=== PATIENT | female | born 1950 | race Caucasian/White ===

== ENCOUNTER → 2016-11-30 | Outpatient (CLI) | payer MEDICARE, BC ==
[2016-06-17 19:48] VITALS: BP 109/53
[~2016-11-30] MED LIST: ASPI-482 PO; CHLO5CAP2 PO; FAMO40TA57 PO; FENT1PAT17 TD; FENT1PAT19 TD; FENT1PAT21 TD; LUBI24CA5 PO; OMEP10CA3 PO; ONDA4TAB10 SL; POTA99TA10 PO; SERT100T8 PO; SPIR50TA2 PO; TRAM50TA PO; ZOLP10TA4 PO
--- NOTE | 2016-11-30 16:03 | KCIC ---
PROCEDURE Right lower extremity venous Doppler ultrasound HISTORY Right lower extremity pain, lumps of the right calf, thrombophlebitis COMPARISON None FINDINGS Multiple grayscale, color, duplex spectral analysis waveform images were acquired of the right lower extremity veins. There is normal compression and color flow from the right common femoral to popliteal veins, normal phasicity. There is normal color flow of the right greater saphenous vein. Right superficial saphenous vein is also apparently patent. No focal varicosity is demonstrated at site of lump and pain indicated as the mid lateral right calf region. Incidental note is made of a right groin lymph node although not considered significantly enlarged, 0.9 x 1.4 x 0.4 cm. IMPRESSION 1. There is no evidence of deep venous thrombosis from the right common femoral to popliteal veins, no thrombosed superficial vein or varicosity demonstrated on this exam. Electronically signed by: Jesus Luong MD (Nov 30, 2016 16:01:57)
== END | disposition home or self-care (01) ==
LOC: KCIC US 15:20
PROVIDERS: ATTEND Family Medicine
DX: R22.41 Localized swelling, mass and lump, right lower limb (principal); Z86.72 Personal history of thrombophlebitis
CPT/HCPCS: 93971

== ENCOUNTER 2017-10-02 01:49 | Emergency (ER) | payer MEDICARE, BC ==
[~2017-10-02] VITALS: Ht 165.1 cm; Wt 78.0 kg
[~2017-10-02 01:49] MED LIST changes: -LUBI24CA5 PO; +LUBI24CA7 PO
[2017-10-02 02:53] LABS: BASO # 0.1 x10^3/uL (0.0-0.2); BASO % 1 % (0-3); EOS % 1 % (0-3); HEMATOCRIT 43.4 % (36.0-47.0); HEMOGLOBIN 14.4 g/dL (12.0-15.5); LYMPH # 3.2 x10^3/uL (1.0-4.8); LYMPH % 18 % (24-48); MEAN CORPUSCULAR HEMOGLOBIN 29 pg (25-35); MEAN CORPUSCULAR HGB CONC 33 g/dL (31-37); MEAN CORPUSCULAR VOLUME 89 fL (79-100); MONO % 5 % (0-9); NEUT % 76 % (31-73); PLATELET COUNT 397 x10^3/uL (140-400); RED BLOOD COUNT 4.88 x10^6/uL (3.50-5.40); RED CELL DISTRIBUTION WIDTH 18.3 % (11.5-14.5); WHITE BLOOD COUNT 18.1 x10^3/uL (4.0-11.0)
[2017-10-02 02:55] LABS: BILIRUBIN,URINE NEGATIVE (NEG); GLUCOSE,URINE NEGATIVE (NEG); NITRITE,URINE NEGATIVE (NEG); PROTEIN,URINE NEGATIVE (NEG-TRACE)
[2017-10-02] MEDS ORDERED: IV NORMAL SALINE 1000ML BAG 1,000 ML IV ONE (03:00)
[2017-10-02] MEDS ORDERED: cloNIDine HCL 0.1 MG TABLET PO ONE (03:00)
[2017-10-02] MEDS ORDERED: ONDANSETRON PF 4 MG/2 ML VIAL. IV ONE (03:00)
[2017-10-02] MEDS ORDERED: diphenhydrAMINE 50 MG/ML VIAL IVP ONE (03:00)
[2017-10-02 03:01] LABS: BACTERIA,URINE FEW /HPF (0-FEW); RBC,URINE 0 /HPF (0-2); SQUAMOUS EPITHELIAL CELL,UR FEW /LPF
[2017-10-02 03:09] LABS: CALCIUM 9.1 mg/dL (8.5-10.1); CREATININE 0.9 mg/dL (0.6-1.0); GFR 62.6; POTASSIUM 3.8 mmol/L (3.5-5.1)
[2017-10-02 03:16] LABS: ALBUMIN 3.8 g/dL (3.4-5.0); TOTAL BILIRUBIN 0.3 mg/dL (0.2-1.0); TOTAL PROTEIN 7.5 g/dL (6.4-8.2)
[2017-10-02 03:18] VITALS: BP 124/73
[2017-10-02 03:21] LABS: % EOS 1 % (0-5); ANISOCYTOSIS SLIGHT; PLT ESTIMATE ADEQUATE (ADEQUATE)
--- NOTE | 2017-10-02 04:14 | PHYS DOC ---
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 Patient reports that she no longer thinks that the fentanyl was working. She reports that she has symptoms of feeling cold and clammy, anxiety, nausea. Patient denies any vomiting diarrhea or abdominal cramps. Patient has any fevers shakes chills. Patient reports no cough or rhinorrhea. Patient does feel diaphoretic. Patient reports her PCP is Dr. Lopez whom she has an appointment with on Sunday however she canceled that appointment secondary to feeling better. Patient denies any history of diabetes hypertension strokelike symptoms liver longer kidney problems. Review of systems: Constitutional: Denies fever or chills Eyes: Denies change in visual acuity, redness, or eye pain HENT: Denies nasal congestion or sore throat Respiratory: Denies cough or shortness of breath Physical exam Constitutional: Well developed, well nourished, no acute distress, non-toxic appearance. HENT: Normocephalic, atraumatic, bilateral external ears normal, oropharynx moist, no oral exudates, nose normal. Eyes: PERRLA, EOMI, conjunctiva normal, no discharge. Neck: Normal range of motion, no tenderness, supple, no stridor. Cardiovascular:Heart rate regular rhythm, Lungs & Thorax: Bilateral breath sounds clear to auscultation Abdomen: Bowel sounds normal, soft, no tenderness, no masses, no pulsatile masses. Skin: Warm, dry, no erythema, no rash. Back: No tenderness, no CVA tenderness. Extremities: No tenderness, no cyanosis, no clubbing, ROM intact, no edema. Neurologic: Alert and oriented X 3, normal motor function, normal sensory function, no focal deficits noted. Psychologic: Affect normal, judgement normal, mood normal. Assessment and plan This is a 67-year-old female who appears to be gone through opiate withdrawal by symptoms. Patient reports that she has been on fentanyl for several years now but feels like it is no longer working and is having symptoms consistent with withdrawal. I have had a long discussion with the patient that she will need to touch base with her primary care physician and her pain specialist to evaluate her and assess her for her withdrawal symptoms and decide will be the most appropriate way to order to stop using opiates. Patient appears to be extremely motivated to stop all opiate medications. Patient is requesting assistance with her symptomatology. I have discussed with the patient that we will give her medication to help alleviate some of these symptoms however long- term management and cessation of opiates would be best accomplished by her primary care physician in conjunction with an outpatient program. While in the ER the patient was given clonidine 0.1 mg by mouth, Benadryl and Zofran IV fluids. Patient's lab workup is been unremarkable except for an elevated white blood cell count of unclear etiology. Patient does not appear to be septic and I feel that this might be secondary to the stress of this withdrawal that is caused emargination. Patient is not exhibiting any signs of infectious source. Patient does not have a cough. Patient's abdomen was soft nontender no rebound or guarding. Patient does not have any rash. Patient's neck is supple. Her TMs were clear. Her oropharynx was normal. Patient will be discharged home in stable condition with instructions to follow-up with Dr. Lopez in 1-2 days for reevaluation. Upon reevaluation at 4:15 AM patient reports that she feels 100% improved and is no longer anxious and tremulous, she is no longer diaphoretic or : Clammy. She feels very comfortable with the plan to be discharged home and follow-up with her primary care physician. Initially entering the patient's room she was sleeping and appeared extremely comfortable. Current Medications Current Medications Current Medications Medications (Trade) Dose Ordered Sig/Rayshawn Start Time Stop Time Status Last Admin Dose Admin Clonidine HCl (Catapres) 0.1 mg 1X ONCE 10/02/17 03:00 10/02/17 03:01 DC 10/02/17 03:07 0.1 MG Diphenhydramine HCl (Benadryl) 50 mg 1X ONCE 10/02/17 03:00 10/02/17 03:01 DC 10/02/17 03:11 50 MG Lorazepam (Ativan) 1 mg 1X ONCE 10/02/17 03:00 10/02/17 03:01 DC 10/02/17 03:06 1 MG Ondansetron HCl (Zofran) 4 mg 1X ONCE 10/02/17 03:00 10/02/17 03:01 DC 10/02/17 03:11 4 MG Sodium Chloride 1,000 ml @ 1,000 mls/hr 1X ONCE 10/02/17 03:00 10/02/17 03:59 DC 10/02/17 03:06 1,000 MLS/HR Allergies Allergies Allergies Coded Allergies Type Severity Reaction Last Updated Verified meperidine Allergy Mild 12/11/13 Yes morphine Allergy Mild Hives, itching 12/11/13 Yes Current Patient Data Vital Signs Vital Signs Date Time Temp Pulse Resp B/P (MAP) Pulse Ox O2 Delivery O2 Flow Rate FiO2 10/02/17 03:18 21 124/73 (90) 97 10/02/17 03:07 81 10/02/17 02:07 97.8 Room Air 97.8 Lab Values Laboratory Tests Test 10/02/17 02:05 10/02/17 02:49 White Blood Count 18.1 x10^3/uL (4.0-11.0) H Red Blood Count 4.88 x10^6/uL (3.50-5.40) Hemoglobin 14.4 g/dL (12.0-15.5) Hematocrit 43.4 % (36.0-47.0) Mean Corpuscular Volume 89 fL (79-100) Mean Corpuscular Hemoglobin 29 pg (25-35) Mean Corpuscular Hemoglobin Concent 33 g/dL (31-37) Red Cell Distribution Width 18.3 % (11.5-14.5) H Platelet Count 397 x10^3/uL (140-400) Neutrophils (%) (Auto) 76 % (31-73) H Lymphocytes (%) (Auto) 18 % (24-48) L Monocytes (%) (Auto) 5 % (0-9) Eosinophils (%) (Auto) 1 % (0-3) Basophils (%) (Auto) 1 % (0-3) Neutrophils # (Auto) 13.7 x10^3uL (1.8-7.7) H Lymphocytes # (Auto) 3.2 x10^3/uL (1.0-4.8) Monocytes # (Auto) 1.0 x10^3/uL (0.0-1.1) Eosinophils # (Auto) 0.1 x10^3/uL (0.0-0.7) Basophils # (Auto) 0.1 x10^3/uL (0.0-0.2) Segmented Neutrophils % 76 % (35-66) H Lymphocytes % 16 % (24-48) L Monocytes % 7 % (0-10) Eosinophils % 1 % (0-5) Platelet Estimate Adequate (ADEQUATE) Anisocytosis Slight Sodium Level 135 mmol/L (136-145) L Potassium Level 3.8 mmol/L (3.5-5.1) Chloride Level 100 mmol/L (98-107) Carbon Dioxide Level 21 mmol/L (21-32) Anion Gap 14 (6-14) Blood Urea Nitrogen 19 mg/dL (7-20) Creatinine 0.9 mg/dL (0.6-1.0) Estimated GFR (Cockcroft-Gault) 62.6 BUN/Creatinine Ratio 21 (6-20) H Glucose Level 144 mg/dL (70-99) H Calcium Level 9.1 mg/dL (8.5-10.1) Total Bilirubin 0.3 mg/dL (0.2-1.0) Aspartate Amino Transferase (AST) 10 U/L (15-37) L Alanine Aminotransferase (ALT) 14 U/L (14-59) Alkaline Phosphatase 125 U/L (46-116) H Troponin I Quantitative < 0.017 ng/mL (0.000-0.055) DP-Utd-P-Type Natriuretic Peptide 102 pg/mL (0-124) Total Protein 7.5 g/dL (6.4-8.2) Albumin 3.8 g/dL (3.4-5.0) Albumin/Globulin Ratio 1.0 (1.0-1.7) Urine Collection Type Unknown Urine Color Yellow Urine Clarity Clear Urine pH 6.0 Urine Specific [place] 1.015 Urine Protein Negative mg/dL (NEG-TRACE) Urine Glucose (UA) Negative mg/dL (NEG) Urine Ketones (Stick) Negative mg/dL (NEG) Urine Blood Negative (NEG) Urine Nitrite Negative (NEG) Urine Bilirubin Negative (NEG) Urine Urobilinogen Dipstick 1.0 mg/dL (0.2 mg/dL) Urine Leukocyte Esterase Small (NEG) Urine RBC 0 /HPF (0-2) Urine WBC 5-10 /HPF (0-4) Urine Squamous Epithelial Cells Few /LPF Urine Bacteria Few /HPF (0-FEW) Urine Mucus Mod /LPF Laboratory Tests 10/02/17 02:05 Laboratory Tests 10/02/17 02:05 EKG EKG [] Radiology/Procedures Radiology/Procedures [] Course & Med Decision Making Course & Med Decision Making Pertinent Labs and Imaging studies reviewed. (See chart for details) [] Dragon Disclaimer Dragon Disclaimer This electronic medical record was generated, in whole or in part, using a voice recognition dictation system. Departure Departure Impression: Primary Impression: Opiate withdrawal Disposition: 01 HOME, SELF-CARE Condition: IMPROVED Referrals: LARISSA LOPEZ MD (PCP) Patient Instructions: Narcotic Withdrawal, Opiate Dependence Additional Instructions: Please follow up with her doctors as discussed to assist you with your opiate withdrawal. AMINA HUGHES MD Oct 02, 2017 04:14
--- NOTE | 2017-10-02 07:13 | RAD ---
Portable chest, 10/02/2017: History: Shortness of breath The heart size and pulmonary vascularity are normal. There is minimal parenchymal scarring. No acute infiltrates are seen. There is no evidence of pleural fluid. IMPRESSION: No acute cardiopulmonary abnormality is detected.
--- NOTE | 2017-10-02 08:07 | EKG ---
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
== END 2017-10-02 04:31 | disposition home or self-care (01) ==
LOC: ER 01:49
DX: F11.23 Opioid dependence with withdrawal (principal); F41.9 Anxiety disorder, unspecified; T40.2X5A Adverse effect of other opioids, initial encounter; F32.9 Major depressive disorder, single episode, unspecified; K21.9 Gastro-esophageal reflux disease without esophagitis; E78.00 Pure hypercholesterolemia, unspecified; G89.29 Other chronic pain; E78.5 Hyperlipidemia, unspecified; Z86.73 Personal history of transient ischemic attack (TIA), and cerebral infarction without residual deficits; Z90.49 Acquired absence of other specified parts of digestive tract; Z90.710 Acquired absence of both cervix and uterus; Z88.8 Allergy status to other drugs, medicaments and biological substances; Z88.5 Allergy status to narcotic agent; Y92.89 Other specified places as the place of occurrence of the external cause
CPT/HCPCS: 36415; 71010; 80053; 81001; 83880; 84484; 85007; 85025; 87086; 93005; 96361; 96374; 96375; 99285; J1200; J2060; J2405; J7030

== ENCOUNTER → 2017-12-25 | Outpatient (CLI) | payer MEDICARE, BC | LOC: KCIC 13:55 | DX: R91.8 Other nonspecific abnormal finding of lung field (principal) | CPT/HCPCS: 71046 ==

== ENCOUNTER → 2018-01-16 | Outpatient (CLI) | payer MEDICARE, BC | END | disposition home or self-care (01) | LOC: KCIC MRI 12:55 | DX: M51.17 Intervertebral disc disorders with radiculopathy, lumbosacral region (principal); D18.09 Hemangioma of other sites | CPT/HCPCS: 72148 ==

== ENCOUNTER → 2018-07-03 | Outpatient (CLI) | payer MEDICARE, BC ==
[~2018-07-03] MED LIST changes: -SPIR50TA2 PO; +SPIR50TA4 PO
--- NOTE | 2018-07-03 16:33 | KCIC ---
MR of the left ankle and foot Indication: Ongoing cellulitis. Elevated ESR and white blood cell count. Diabetic. No known ulcer. Redness at the dorsal foot for one month.. Technique: Standard multiplanar sequences are obtained. Ankle: Peroneal tendons: Intact, no dislocation Lateral ligaments: Anterior talofibular, calcaneofibular and posterior talofibular ligaments are intact. Tibiofibular syndesmosis:Intact. Medial tendons: Posterior tibial and flexor tendons are intact. Medial ligaments: No evidence of acute deltoid ligament tear Anterior tendons: Anterior tibial and extensor tendons are intact. Achilles tendon: Intact Plantar aponeurosis: No acute plantar fasciitis Subtalar joints: Patent Tarsal sinus: Intact Talar Dome: Intact Bones: No acute fracture or aggressive bone destruction. Fluid:No significant effusion. Joints: [id number] degenerative changes. Soft tissues: Mild subcutaneous edema. Foot: Subcutaneous edema and swelling along the dorsum of the foot. No organized fluid collection or drainable abscess. No acute tendon disruption. No significant tendon sheath fluid. Lisfranc ligament complex appears intact as does tarsometatarsal alignment. Marrow edema at the first metacarpophalangeal joint. This may be degenerative. Mild marrow edema at the second metatarsal head. No aggressive bone destruction. There is apparent fusion of the first IP joint. There also appears to be fusion of the second IP joint and third IP joint. No large joint effusion. IMPRESSION: 1. Subcutaneous edema or cellulitis along the dorsum of the foot. 2. Marrow edema at the first metacarpophalangeal joint and second metatarsal head. Findings could be degenerative. If there is an adjacent ulcer, mild osteomyelitis could be considered, but this is not convincing. Electronically signed by: Pancho Wong MD (07/03/2018 4:29 PM) [facility]
== END | disposition home or self-care (01) ==
LOC: KCIC MRI 14:34
PROVIDERS: ATTEND Internal Medicine
DX: R60.0 Localized edema (principal); E78.00 Pure hypercholesterolemia, unspecified; K21.9 Gastro-esophageal reflux disease without esophagitis; Z87.891 Personal history of nicotine dependence
CPT/HCPCS: 73718; 73721

== ENCOUNTER → 2018-07-17 | Outpatient (CLI) | payer MEDICARE, BC ==
[~2018-07-17] MED LIST changes: +CONTRAST GIVEN. MC PRN; +IOHEXOL 300 MG/ML 100ML VIAL. IV ONE
--- NOTE | 2018-07-17 15:13 | KCIC ---
CT abdomen pelvis and bilateral lower extremity runoff dated 07/17/2018. No comparison available. CLINICAL INDICATION: History of cellulitis to left foot. Lower extremity swelling and pain. Evaluate for atherosclerotic disease. Claudication. History of diabetes and tobacco use. TECHNIQUE: Contiguous axial imaging of the abdomen and pelvis bilateral lower extremity performed following the bolus administration of 100 cc Omnipaque 300. Study was performed as dedicated CTA with thin cut coronal and sagittal reconstructions 3-D rotational reconstructions. One or more of the following individualized dose reduction techniques were utilized for this examination: 1. Automated exposure control 2. Adjustment of the mA and/or kV according to patient size 3. Use of iterative reconstruction technique. FINDINGS: Abdominal aorta is normal in caliber. No evidence of aneurysm. There is calcific and soft plaque throughout. Mild calcific plaque at the origin of the celiac artery without significant stenosis. The SMA is patent. Bilateral renal arteries are patent. There is an accessory renal artery on the right. Mild narrowing of the JON at its origin. The bilateral common iliac arteries show mild multifocal calcific plaquing. No significant stenosis. The external iliac arteries are patent. Mild to moderate narrowing of the proximal left internal iliac artery with mild narrowing of the proximal right internal iliac artery. The right common femoral artery and profundus femoris are patent. The right SFA is patent. Popliteal artery and tibioperoneal trunk are patent. The arteries of the right calf are within normal limits. The left common femoral artery and profundus femoris are patent. The left SFA, popliteal artery and tibioperoneal trunk are patent. The left calf vessels are patent with no apparent focal stenosis. Deformity of the left femoral midshaft consistent with old healed fracture. There is a anterior grade intramedullary nail in place. There are also old healed fractures of the distal tibia and fibula on the left. Moderate to severe fatty atrophy of the calf muscles and muscles of left foot. There is also [id number] atrophy of the thigh musculature on the left. Liver, spleen, pancreas and adrenal glands are unremarkable. The gallbladder is surgically absent. The common bile duct is mildly dilated measuring 9 mm diameter. No apparent filling defect. No intrahepatic ductal dilatation. Kidneys are symmetric in size and enhancement. No hydronephrosis. Well-defined low-density focus at the upper pole right kidney, most consistent with cyst. Unopacified GI tract normal in caliber and contour. No focal bowel wall thickening. No inflammatory stranding in the mesentery. No ascites or lymphadenopathy. Small umbilical hernia containing only fat. Images of pelvis show nondistended urinary bladder. Surgical absence of the uterus. No free fluid or pelvic lymphadenopathy. IMPRESSION: 1. No evidence of hemodynamically significant stenosis or aneurysm. 2. Mild to moderate narrowing of the proximal left internal iliac artery. 3. Old healed fractures of the midshaft left femur and distal one third shaft tibia and fibula status post or ORIF. There is moderate to severe fatty atrophy of the distal calf and foot musculature which could be related to disuse atrophy or denervation. Correlate clinically. 4. Mild dilation of the extrahepatic biliary tree without significant intrahepatic ductal dilatation. This is likely related to age and postcholecystectomy state. Recommend laboratory correlation. Electronically signed by: Pancho Veloz MD (07/17/2018 3:10 PM) [facility]
== END | disposition home or self-care (01) ==
LOC: KCIC CT 12:04
PROVIDERS: ATTEND Internal Medicine
DX: I70.8 Atherosclerosis of other arteries (principal); M62.562 Muscle wasting and atrophy, not elsewhere classified, left lower leg; K42.9 Umbilical hernia without obstruction or gangrene; E78.00 Pure hypercholesterolemia, unspecified; K21.9 Gastro-esophageal reflux disease without esophagitis; Z90.49 Acquired absence of other specified parts of digestive tract; Z90.710 Acquired absence of both cervix and uterus; Z87.891 Personal history of nicotine dependence
CPT/HCPCS: 75635; 82565; Q9967

== ENCOUNTER 2018-07-29 10:08 | Inpatient (IN) | payer MEDICARE ==
[~2018-07-29] VITALS: Ht 165.1 cm; Wt 78.9 kg
[~2018-07-29 10:08] MED LIST changes: -CONTRAST GIVEN. MC PRN; -IOHEXOL 300 MG/ML 100ML VIAL. IV ONE
[2018-07-29] MEDS ORDERED: IV NORMAL SALINE 1000ML BAG 1,000 ML IV ONE (10:45)
[2018-07-29] MEDS ORDERED: VANCOMYCIN PER PHARMACY MC PRN (10:45)
[2018-07-29] MEDS ORDERED: VANCOMYCIN 2 GM in IV NORMAL SALINE 500ML BAG 500 ML IV ONE (10:45)
[2018-07-29] MEDS ORDERED: ACETAMINOPHEN 325 MG TABLET. PO ONE (10:45)
--- NOTE | 2018-07-29 10:59 | RAD ---
Left Lower Extremity Venous Doppler Ultrasound Indication: Left lower extremity swelling. Evaluate for deep venous thrombosis. Comparison: Bilateral lower extremity venous Doppler May 24, 2018. Procedure: Color Doppler, spectral Doppler, and grayscale images with and without compression are obtained in the area of the common femoral vein, superficial femoral vein - femoral vein junction, main femoral vein (superficial femoral vein) and popliteal vein. Veins of the proximal calf are also imaged. Findings: There is normal duplex flow, color flow and compressibility of all visualized vein segments. There is no evidence of deep venous thrombosis. Impression: No evidence of left lower extremity deep venous thrombosis. Electronically signed by: Pancho Yuan MD (07/29/2018 10:56 AM) [place] [id number]
--- NOTE | 2018-07-29 11:00 | RAD ---
Portable chest, 07/29/2018: HISTORY: Shortness of breath, cellulitis, diabetes The heart size and pulmonary vascularity are normal. No pulmonary infiltrate is seen. There is no evidence of pleural fluid. IMPRESSION: No acute cardiopulmonary abnormality is detected. Electronically signed by: Javan Peterson MD (07/29/2018 10:57 AM) [facility]
--- NOTE | 2018-07-29 11:07 | PHYS DOC ---
Past Medical History Past Medical History: Constipation, Depression, Diabetes-Type II, GERD, High Cholesterol, TIA Additional Past Medical Histor: Chronic low back pain (tx: [facility]) Past Surgical History: Appendectomy, Cholecystectomy, Hysterectomy, Tonsillectomy, Other Additional Past Surgical Histo: JORGE RIVERA 1979 (multiple surgeries to LLE ) Additional Information: 11/20 ppd Alcohol Use: None Drug Use: None Adult General Chief Complaint Chief Complaint: FOOT INJURY PAIN HPI HPI Patient is a 68 year old female presenting with chief complaint of left foot pain and redness. She's had this on and off for 6 weeks now she is admitted to the hospital at [facility] last month she had an MRI that did show some diffuse soft tissue edema she received antibiotics and got better but over the last couple of days the redness and pain has increased she also feels shaky and chills as though she may have a fever although we have not documented one at home. She does have a remote history of a broken leg 30 years ago no new injuries. She was sent over by her primary doctor for likely admission and infectious disease consultation. Review of Systems Review of Systems Constitutional: Eyes: Denies change in visual acuity, redness, or eye pain [] HENT: Denies nasal congestion or sore throat [] Respiratory: Shortness of breath since she got to the ER she is anxious Cardiovascular: No additional information not addressed in HPI [] GI: Denies abdominal pain, nausea, vomiting, bloody stools or diarrhea [] : Denies dysuria or hematuria [] Neurologic: Denies headache, focal weakness or sensory changes [] Endocrine: Denies polyuria or polydipsia [] All other systems were reviewed and found to be within normal limits, except as documented in this note. Current Medications Current Medications Current Medications Medications (Trade) Dose Ordered Sig/Rayshawn Start Time Stop Time Status Last Admin Dose Admin Acetaminophen (Tylenol) 650 mg 1X ONCE 07/29/18 10:45 07/29/18 10:46 DC 07/29/18 11:05 650 MG Lorazepam (Ativan) 1 mg 1X ONCE 07/29/18 10:45 07/29/18 10:46 DC 07/29/18 11:04 1 MG Sodium Chloride 1,000 ml @ 1,000 mls/hr 1X ONCE 07/29/18 10:45 07/29/18 11:44 DC 07/29/18 11:04 1,000 MLS/HR Vancomycin HCl (Vanco Per Pharmacy) 1 each PRN DAILY PRN 07/29/18 10:45 UNV Vancomycin HCl 2 gm/Sodium Chloride 500 ml @ 250 mls/hr 1X ONCE 07/29/18 10:45 07/29/18 12:44 07/29/18 11:29 250 MLS/HR Allergies Allergies Allergies Coded Allergies Type Severity Reaction Last Updated Verified meperidine Allergy Mild 12/11/13 Yes morphine Allergy Mild Hives, itching 12/11/13 Yes Physical Exam Physical Exam Constitutional: Well developed, well nourished, no acute distress, non-toxic appearance. [] HENT: Normocephalic, atraumatic, bilateral external ears normal, oropharynx moist, no oral exudates, nose normal. [] Eyes: PERRLA, EOMI, conjunctiva normal, no discharge. [] Neck: Normal range of motion, no tenderness, supple, no stridor. [] Cardiovascular:Heart rate regular rhythm, no murmur [] Lungs & Thorax: Bilateral breath sounds clear to auscultation [] Abdomen: Bowel sounds normal, soft, no tenderness, no masses, no pulsatile masses. [] Skin: Warm, dry, no erythema, no rash. [] Back: No tenderness, no CVA tenderness. [] Extremities: Left lower extremity there is swelling there is edema there is erythema at the dorsum of the foot pedal pulses intact there are postsurgical changes of the tibia that do not appear new. Neurologic: Alert and oriented X 3, normal motor function, normal sensory function, no focal deficits noted. [] Psychologic: Affect normal, judgement normal, mood anxious Current Patient Data Vital Signs Vital Signs Date Time Temp Pulse Resp B/P (MAP) Pulse Ox O2 Delivery O2 Flow Rate FiO2 07/29/18 11:15 79 22 117/58 (77) 97 Room Air 07/29/18 10:14 98.4 98.4 Lab Values Laboratory Tests Test 07/29/18 11:05 White Blood Count 9.1 x10^3/uL (4.0-11.0) Red Blood Count 3.81 x10^6/uL (3.50-5.40) Hemoglobin 11.5 g/dL (12.0-15.5) L Hematocrit 33.4 % (36.0-47.0) L Mean Corpuscular Volume 88 fL (79-100) Mean Corpuscular Hemoglobin 30 pg (25-35) Mean Corpuscular Hemoglobin Concent 35 g/dL (31-37) Red Cell Distribution Width 17.6 % (11.5-14.5) H Platelet Count 322 x10^3/uL (140-400) Neutrophils (%) (Auto) 73 % (31-73) Lymphocytes (%) (Auto) 21 % (24-48) L Monocytes (%) (Auto) 6 % (0-9) Eosinophils (%) (Auto) 0 % (0-3) Basophils (%) (Auto) 0 % (0-3) Neutrophils # (Auto) 6.7 x10^3uL (1.8-7.7) Lymphocytes # (Auto) 1.9 x10^3/uL (1.0-4.8) Monocytes # (Auto) 0.5 x10^3/uL (0.0-1.1) Eosinophils # (Auto) 0.0 x10^3/uL (0.0-0.7) Basophils # (Auto) 0.0 x10^3/uL (0.0-0.2) Sodium Level 138 mmol/L (136-145) Potassium Level 3.6 mmol/L (3.5-5.1) Chloride Level 103 mmol/L (98-107) Carbon Dioxide Level 23 mmol/L (21-32) Anion Gap 12 (6-14) Blood Urea Nitrogen 8 mg/dL (7-20) Creatinine 0.6 mg/dL (0.6-1.0) Estimated GFR (Cockcroft-Gault) 99.7 BUN/Creatinine Ratio 13 (6-20) Glucose Level 103 mg/dL (70-99) H Lactic Acid Level 1.5 mmol/L (0.4-2.0) Calcium Level 9.1 mg/dL (8.5-10.1) Total Bilirubin 0.5 mg/dL (0.2-1.0) Aspartate Amino Transferase (AST) 11 U/L (15-37) L Alanine Aminotransferase (ALT) 15 U/L (14-59) Alkaline Phosphatase 89 U/L (46-116) Total Protein 7.5 g/dL (6.4-8.2) Albumin 3.5 g/dL (3.4-5.0) Albumin/Globulin Ratio 0.9 (1.0-1.7) L Laboratory Tests 07/29/18 11:05 Laboratory Tests 07/29/18 11:05 EKG EKG [] Radiology/Procedures Radiology/Procedures [] Impressions: so imaged. Findings: There is normal duplex flow, color flow and compressibility of all visualized vein segments. There is no evidence of deep venous thrombosis. Impression: No evidence of left lower extremity deep venous thrombosis. Electronically signed by: Pancho Hirsch MD (07/29/2018 10:56 AM) [place] [id number] DICTATED and SIGNED BY: PANCHO HIRSCH MD DATE: 07/29/18 105 he heart size and pulmonary vascularity are normal. No pulmonary infiltrate is seen. There is no evidence of pleural fluid. IMPRESSION: No acute cardiopulmonary abnormality is detected. Electronically signed by: Javan Peterson MD (07/29/2018 10:57 AM) [facility] DICTATED and SIGNED BY: JAVAN PETERSON MD DATE: 07/29/18 105 Course & Med Decision Making Course & Med Decision Making Pertinent Labs and Imaging studies reviewed. (See chart for details) [] This is 68-year-old female with history of recurrent cellulitis of the left lower extremity she does have a prior history of a surgical repair of the mccoy in the past perhaps she has venous flow issues. This is recurrent now over the course of a month plan to admit IV antibiotics we'll place routine consultation for infectious disease as per the request of primary care doctor. primary doctor had requested id consultation and admission, per the referring md from [facility] that i spoke with giovanni/buck short for the above. Dragon Disclaimer Dragon Disclaimer This electronic medical record was generated, in whole or in part, using a voice recognition dictation system. Departure Departure Impression: Primary Impression: Cellulitis Disposition: ADMITTED INPATIENT Admitting Physician: Sophie Short Condition: STABLE Referrals: SUSAN LEIVA MD (PCP) TIBURCIO OSEGUERA MD Jul 29, 2018 11:07
[2018-07-29 11:24] LABS: BASO % 0 % (0-3); EOS % 0 % (0-3); HEMATOCRIT 33.4 % (36.0-47.0); HEMOGLOBIN 11.5 g/dL (12.0-15.5); LYMPH # 1.9 x10^3/uL (1.0-4.8); LYMPH % 21 % (24-48); MEAN CORPUSCULAR HEMOGLOBIN 30 pg (25-35); MEAN CORPUSCULAR HGB CONC 35 g/dL (31-37); MEAN CORPUSCULAR VOLUME 88 fL (79-100); MONO # 0.5 x10^3/uL (0.0-1.1); MONO % 6 % (0-9); NEUT # 6.7 x10^3uL (1.8-7.7); NEUT % 73 % (31-73); PLATELET COUNT 322 x10^3/uL (140-400); RED BLOOD COUNT 3.81 x10^6/uL (3.50-5.40); RED CELL DISTRIBUTION WIDTH 17.6 % (11.5-14.5); WHITE BLOOD COUNT 9.1 x10^3/uL (4.0-11.0)
[2018-07-29 11:37] LABS: CALCIUM 9.1 mg/dL (8.5-10.1); CREATININE 0.6 mg/dL (0.6-1.0); GFR 99.7; POTASSIUM 3.6 mmol/L (3.5-5.1)
[2018-07-29 11:50] LABS: ALBUMIN 3.5 g/dL (3.4-5.0); ALBUMIN/GLOBULIN RATIO 0.9 (1.0-1.7); TOTAL BILIRUBIN 0.5 mg/dL (0.2-1.0); TOTAL PROTEIN 7.5 g/dL (6.4-8.2)
[2018-07-29 14:12] LABS: BILIRUBIN,URINE NEGATIVE (NEG); CLARITY,URINE CLEAR; COLOR,URINE YELLOW; NITRITE,URINE NEGATIVE (NEG); PH,URINE 5.5; PROTEIN,URINE NEGATIVE (NEG-TRACE); UROBILINOGEN,URINE 0.2 mg/dL (0.2 mg/dL)
[2018-07-29 14:19] LABS: BACTERIA,URINE 0 /HPF (0-FEW); RBC,URINE 0 /HPF (0-2); SQUAMOUS EPITHELIAL CELL,UR FEW /LPF; WBC,URINE 0 /HPF (0-4)
[2018-07-29 15:00] VITALS: BP 102/47
[2018-07-29] MEDS ORDERED: ONDANSETRON ODT 4 MG TAB.RAPDIS. PO PRN (15:45)
[2018-07-29] MEDS ORDERED: C.DIFF MED SCREEN BY RX. MC ONE (15:45)
[2018-07-29] MEDS ORDERED: fentaNYL 100MCG/HR PATCH 1 PATCH PATCH TD SCH (15:45)
[2018-07-29] MEDS ORDERED: fentaNYL 75MCG/HR PATCH 1 PATCH PATCH.TD72 TD SCH (15:45)
[2018-07-29] MEDS ORDERED: ZOLPIDEM 5 MG TABLET. PO PRN (16:00)
[2018-07-29] MEDS ORDERED: ACETAMINOPHEN 325 MG TABLET. PO PRN (16:15)
[2018-07-29] MEDS: LUBIPROSTONE 8 MCG CAPSULE PO SCH (17:00)
--- NOTE | 2018-07-29 17:07 | PDOC1 ---
History and Physical Date of Admission Date of Admission DATE: 07/29/18 TIME: 17:03 History of Present Illness History of Present Illness Ms. Samaniego is a 68 year old female admit for left leg pain, swelling and redness she was hospitalized at [facility] > 3 weeks ago for 3 days, IV abx, then home with abx, and better for awhile, but now pain and rednes have returned. she has a remote history of significant injury to left lower leg about 30 years ago. But currently been having problems, 6 weeks - Prior MRI that did show some diffuse soft tissue edema, no osteo she feels chills, left leg pain, shaky chills PCP is Dr. Greenberg, sent patient for admit and eval Past Medical History Cardiovascular: HTN CENTRAL NERVOUS SYSTEM: Other Musculoskeletal: low back pain, Other Past Surgical History Past Surgical History: Hysterectomy Family History Family History: No Significant Social History Smoke: <1 pack per day ALCOHOL: none Drugs: None Current Problem List Problem List Problems Medical Problems: (1) Cellulitis Status: Acute Current Medications Current Medications Current Medications Vancomycin HCl (Vanco Per Pharmacy) 1 each PRN DAILY PRN MC SEE COMMENTS Last administered on 07/29/18at 16:50; Start 07/29/18 at 10:45 Sodium Chloride 1,000 ml @ 1,000 mls/hr 1X ONCE IV Last administered on at 11:04; Start 07/29/18 at 10:45; Stop 07/29/18 at 11:44; Status DC Lorazepam (Ativan) 1 mg 1X ONCE IV Last administered on 07/29/18at 11:04; Start 07/29/18 at 10:45; Stop 07/29/18 at 10:46; Status DC Acetaminophen (Tylenol) 650 mg 1X ONCE PO Last administered on 07/29/18at 11:05 ; Start 07/29/18 at 10:45; Stop 07/29/18 at 10:46; Status DC Vancomycin HCl 2 gm/Sodium Chloride 500 ml @ 250 mls/hr 1X ONCE IV Last administered on 07/29/18at 11:29; Start 07/29/18 at 10:45; Stop 07/29/18 at 12:44 ; Status DC Pharmacy Consult (C.diff Med Screen By Rx) 1 each 1X ONCE MC ; Start 9/10/18 at 15:45; Stop 07/29/18 at 15:56; Status DC Fentanyl (Duragesic 75mcg/ Hr Patch) 1 patch Q72H TD ; Start 07/29/18 at 15:45 Ondansetron HCl (Zofran Odt) 4 mg PRN Q8HRS PRN PO NAUSEA; Start 07/29/18 at 15 :45 Fentanyl (Duragesic 100mcg/Hr Patch) 1 patch Q72H TD ; Start 07/29/18 at 15:45 Lubiprostone (Amitiza) 24 mcg BIDWMEALS PO ; Start 07/29/18 at 17:00 Sertraline HCl (Zoloft) 100 mg DAILY PO ; Start 07/30/18 at 09:00 Spironolactone (Aldactone) 50 mg DAILY PO ; Start 07/30/18 at 09:00 Zolpidem Tartrate (Ambien) 5 mg PRN QHS PRN PO INSOMNIA; Start 07/29/18 at 16: 00 Acetaminophen (Tylenol) 650 mg PRN Q6HRS PRN PO MILD PAIN / TEMP; Start at 16:15 Vancomycin HCl 1.25 gm/Sodium Chloride 250 ml @ 167 mls/hr Q24H IV ; Start 10/06 at 11:30 Vancomycin HCl (Vancomycin Trough Level) 1 each 1X ONCE MC ; Start 07/31/18 at 11:00; Stop 07/31/18 at 11:01 Active Scripts Active Zofran Odt (Ondansetron) 4 Mg Tab.rapdis 1 Tab SL Q8HRS PRN Reported FENTANYL 75mcg/hr (Fentanyl) 1 Each Patch.td72 1 Patch TD Q72H FENTANYL 100mcg/hr (Fentanyl) 1 Each Patch.td72 1 Patch TD Q72H Chlordiazepoxide Hcl 5 Mg Capsule 5 Mg PO Pepcid (Famotidine) 40 Mg Tablet 40 Mg PO Spironolactone 50 Mg Tablet 50 Mg PO Potassium 99 Mg Tablet 99 Mg PO Zolpidem Tartrate 10 Mg Tablet 10 Mg PO Amitiza (Lubiprostone) 24 Mcg Capsule 24 Mcg PO Omeprazole 10 Mg Capsule.dr 10 Mg PO Sertraline Hcl 100 Mg Tablet 100 Mg PO Allergies Allergies: Coded Allergies: meperidine (Verified Allergy, Mild, 12/11/13) morphine (Verified Allergy, Mild, Hives, itching, 12/11/13) ROS General: YES: Chills; No: Night Sweats, Fatigue, Malaise, Appetite, Other PSYCHOLOGICAL ROS: YES: Sleep disturbances; No: Anxiety, Behavioral Disorder, Concentration difficultie, Decreased libido , Depression, Disorientation, Hallucinations, Hostility, Irritablity, Memory difficulties, Mood Swings, Obsessive thoughts, Other Eyes: No Blurry vision, No Decreased vision, No Double vision, No Dry eyes, No Excessive tearing, No Eye Pain, No Itchy Eyes, No Loss of vision, No Photophobia , No Scotomata, No Uses contacts, No Uses glasses, No Other HEENT: No: Heacaches, Visual Changes, Hearing change, Nasal congestion, Nasal discharge, Oral lesions, Sinus pain, Sore Throat, Epistaxis, Sneezing, Snoring, Tinnitus, Vertigo, Vocal changes, Other Respiratory: No: Cough, Hemoptysis, Orthopnea, Pleuritic Pain, Shortness of breath, SOB with excertion, Sputum Changes, Stridor, Tachypnea, Wheezing, Other Cardiovascular: No Chest Pain, No Palpitations, No Orthopnea, No Paroxysmal Noc. Dyspnea, No Edema, No Lt Headedness, No Other Gastrointestinal: No Nausea, No Vomiting, No Abdominal Pain, No Diarrhea, No Constipation, No Melena, No Hematochezia, No Other Genitourinary: No Dysuria, No Frequency, No Incontinence, No Hematuria, No Retention, No Discharge, No Urgency, No Pain, No Flank Pain, No Other, No , No , No , No , No , No , No Musculoskeletal: Yes Joint Pain, Yes Joint Stiffness, Yes Pain In: (foot and ankle) Neurological: No Behavorial Changes, No Bowel/Bladder ControlChng, No Confusion , No Dizziness, No Gait Disturbance, No Headaches, No Impaired Coord/balance, No Memory Loss, No Numbness/Tingling, No Seizures, No Speech Problems, No Tremors, No Visual Changes, No Weakness, No Other Skin: Yes Rash, Yes Skin Lesion Changes, Yes Other Physical Exam General: Alert, Cooperative, No acute distress HEENT: PERRLA, EOMI Lungs: Clear to auscultation, Normal air movement Heart: RRR, no gallops, no murmurs Rectal Exam: not examined Extremities: No clubbing, Normal pulses Skin: No breakdown, Other (redness, and swellign to lower ankle and foot, marked scarring from remote prior accident to left lower leg, ) Neuro: Normal speech, Normal tone, Other Psych/Mental Status: Mental status NL, Mood NL Vitals Vitals Vital Signs Date Time Temp Pulse Resp B/P (MAP) Pulse Ox O2 Delivery O2 Flow Rate FiO2 07/29/18 14:25 Room Air 07/29/18 12:51 78 16 107/55 (72) 94 07/29/18 10:14 98.4 98.4 Labs Labs Laboratory Tests Test 07/29/18 11:05 07/29/18 14:00 White Blood Count 9.1 x10^3/uL (4.0-11.0) Red Blood Count 3.81 x10^6/uL (3.50-5.40) Hemoglobin 11.5 g/dL (12.0-15.5) Hematocrit 33.4 % (36.0-47.0) Mean Corpuscular Volume 88 fL (79-100) Mean Corpuscular Hemoglobin 30 pg (25-35) Mean Corpuscular Hemoglobin Concent 35 g/dL (31-37) Red Cell Distribution Width 17.6 % (11.5-14.5) Platelet Count 322 x10^3/uL (140-400) Neutrophils (%) (Auto) 73 % (31-73) Lymphocytes (%) (Auto) 21 % (24-48) Monocytes (%) (Auto) 6 % (0-9) Eosinophils (%) (Auto) 0 % (0-3) Basophils (%) (Auto) 0 % (0-3) Neutrophils # (Auto) 6.7 x10^3uL (1.8-7.7) Lymphocytes # (Auto) 1.9 x10^3/uL (1.0-4.8) Monocytes # (Auto) 0.5 x10^3/uL (0.0-1.1) Eosinophils # (Auto) 0.0 x10^3/uL (0.0-0.7) Basophils # (Auto) 0.0 x10^3/uL (0.0-0.2) Sodium Level 138 mmol/L (136-145) Potassium Level 3.6 mmol/L (3.5-5.1) Chloride Level 103 mmol/L (98-107) Carbon Dioxide Level 23 mmol/L (21-32) Anion Gap 12 (6-14) Blood Urea Nitrogen 8 mg/dL (7-20) Creatinine 0.6 mg/dL (0.6-1.0) Estimated GFR (Cockcroft-Gault) 99.7 BUN/Creatinine Ratio 13 (6-20) Glucose Level 103 mg/dL (70-99) Lactic Acid Level 1.5 mmol/L (0.4-2.0) Calcium Level 9.1 mg/dL (8.5-10.1) Total Bilirubin 0.5 mg/dL (0.2-1.0) Aspartate Amino Transf (AST/SGOT) 11 U/L (15-37) Alanine Aminotransferase (ALT/SGPT) 15 U/L (14-59) Alkaline Phosphatase 89 U/L (46-116) Total Protein 7.5 g/dL (6.4-8.2) Albumin 3.5 g/dL (3.4-5.0) Albumin/Globulin Ratio 0.9 (1.0-1.7) Urine Collection Type Unknown Urine Color Yellow Urine Clarity Clear Urine pH 5.5 Urine Specific [place] 1.015 Urine Protein Negative mg/dL (NEG-TRACE) Urine Glucose (UA) Negative mg/dL (NEG) Urine Ketones (Stick) 40 mg/dL (NEG) Urine Blood Negative (NEG) Urine Nitrite Negative (NEG) Urine Bilirubin Negative (NEG) Urine Urobilinogen Dipstick 0.2 mg/dL (0.2 mg/dL) Urine Leukocyte Esterase Negative (NEG) Urine RBC 0 /HPF (0-2) Urine WBC 0 /HPF (0-4) Urine Squamous Epithelial Cells Few /LPF Urine Bacteria 0 /HPF (0-FEW) Laboratory Tests Test 07/29/18 11:05 07/29/18 14:00 White Blood Count 9.1 x10^3/uL (4.0-11.0) Red Blood Count 3.81 x10^6/uL (3.50-5.40) Hemoglobin 11.5 g/dL (12.0-15.5) Hematocrit 33.4 % (36.0-47.0) Mean Corpuscular Volume 88 fL (79-100) Mean Corpuscular Hemoglobin 30 pg (25-35) Mean Corpuscular Hemoglobin Concent 35 g/dL (31-37) Red Cell Distribution Width 17.6 % (11.5-14.5) Platelet Count 322 x10^3/uL (140-400) Neutrophils (%) (Auto) 73 % (31-73) Lymphocytes (%) (Auto) 21 % (24-48) Monocytes (%) (Auto) 6 % (0-9) Eosinophils (%) (Auto) 0 % (0-3) Basophils (%) (Auto) 0 % (0-3) Neutrophils # (Auto) 6.7 x10^3uL (1.8-7.7) Lymphocytes # (Auto) 1.9 x10^3/uL (1.0-4.8) Monocytes # (Auto) 0.5 x10^3/uL (0.0-1.1) Eosinophils # (Auto) 0.0 x10^3/uL (0.0-0.7) Basophils # (Auto) 0.0 x10^3/uL (0.0-0.2) Sodium Level 138 mmol/L (136-145) Potassium Level 3.6 mmol/L (3.5-5.1) Chloride Level 103 mmol/L (98-107) Carbon Dioxide Level 23 mmol/L (21-32) Anion Gap 12 (6-14) Blood Urea Nitrogen 8 mg/dL (7-20) Creatinine 0.6 mg/dL (0.6-1.0) Estimated GFR (Cockcroft-Gault) 99.7 BUN/Creatinine Ratio 13 (6-20) Glucose Level 103 mg/dL (70-99) Lactic Acid Level 1.5 mmol/L (0.4-2.0) Calcium Level 9.1 mg/dL (8.5-10.1) Total Bilirubin 0.5 mg/dL (0.2-1.0) Aspartate Amino Transf (AST/SGOT) 11 U/L (15-37) Alanine Aminotransferase (ALT/SGPT) 15 U/L (14-59) Alkaline Phosphatase 89 U/L (46-116) Total Protein 7.5 g/dL (6.4-8.2) Albumin 3.5 g/dL (3.4-5.0) Albumin/Globulin Ratio 0.9 (1.0-1.7) Urine Collection Type Unknown Urine Color Yellow Urine Clarity Clear Urine pH 5.5 Urine Specific [place] 1.015 Urine Protein Negative mg/dL (NEG-TRACE) Urine Glucose (UA) Negative mg/dL (NEG) Urine Ketones (Stick) 40 mg/dL (NEG) Urine Blood Negative (NEG) Urine Nitrite Negative (NEG) Urine Bilirubin Negative (NEG) Urine Urobilinogen Dipstick 0.2 mg/dL (0.2 mg/dL) Urine Leukocyte Esterase Negative (NEG) Urine RBC 0 /HPF (0-2) Urine WBC 0 /HPF (0-4) Urine Squamous Epithelial Cells Few /LPF Urine Bacteria 0 /HPF (0-FEW) VTE Prophylaxis Ordered VTE Prophylaxis Devices: No VTE Pharmacological Prophylaxi: Yes Assessment/Plan Assessment/Plan cellulitis, recurrent, LLE prior scarring left leg from remote accident PVD workup as outpatient has been negative IV abx, ID consult chronic pain, and prior narcotic dependence, 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
[2018-07-29] MEDS ORDERED: NICOTINE POLACRILEX 2MG GUM PACKAGE of 12. BC PRN (17:15)
[2018-07-29] MEDS ORDERED: NICOTINE 14MG PATCH. TD PRN (17:15)
[2018-07-29] MEDS ORDERED: BUPR1TAB2 PO (17:29)
[2018-07-29] MEDS ORDERED: POTA20TA82 PO (18:09)
[2018-07-29] MEDS ORDERED: SERT50TA PO (18:09)
[2018-07-29] MEDS ORDERED: TRAZ-85 PO (18:09)
[2018-07-29] MEDS ORDERED: OMEP20TA8 PO (18:09)
[2018-07-29] MEDS ORDERED: ASPI325T8 PO (18:11)
[2018-07-29] MEDS ORDERED: METF500T9 PO (18:14)
[2018-07-29] MEDS ORDERED: PRAV40TA2 PO (18:14)
[2018-07-29 19:00] VITALS: BP 100/42
[2018-07-29] MEDS: LACTOBACILLUS RHAMNOSUS GG 1 CAPSULE. PO SCH (20:42)
[2018-07-29] MEDS: BUPRENORPHINE SL SCH (20:57)
[2018-07-29] MEDS: NALOXONE SL SCH (20:57)
[2018-07-29 23:00] VITALS: BP 124/55
[2018-07-30] MEDS ORDERED: LORazepam 0.5 MG TABLET PO PRN (00:30)
[2018-07-30 03:00] VITALS: BP 117/50
[2018-07-30 07:00] VITALS: BP 116/64
[2018-07-30] MEDS: LUBIPROSTONE 8 MCG CAPSULE PO SCH (08:00)
[2018-07-30] MEDS ORDERED: SPIRONOLACTONE 25 MG TABLET PO SCH (09:00)
[2018-07-30] MEDS: SERTRALINE 50 MG TABLET. PO SCH ×2 (09:00→09:09)
[2018-07-30] MEDS: LACTOBACILLUS RHAMNOSUS GG 1 CAPSULE. PO SCH (09:08)
[2018-07-30 09:33] LABS: BASO % 1 % (0-3); EOS # 0.1 x10^3/uL (0.0-0.7); EOS % 2 % (0-3); HEMATOCRIT 34.4 % (36.0-47.0); HEMOGLOBIN 11.2 g/dL (12.0-15.5); LYMPH % 28 % (24-48); MEAN CORPUSCULAR HEMOGLOBIN 29 pg (25-35); MEAN CORPUSCULAR HGB CONC 33 g/dL (31-37); MEAN CORPUSCULAR VOLUME 90 fL (79-100); MONO # 0.7 x10^3/uL (0.0-1.1); MONO % 9 % (0-9); NEUT # 4.3 x10^3uL (1.8-7.7); NEUT % 60 % (31-73); PLATELET COUNT 322 x10^3/uL (140-400); RED BLOOD COUNT 3.83 x10^6/uL (3.50-5.40); WHITE BLOOD COUNT 7.1 x10^3/uL (4.0-11.0)
[2018-07-30 10:21] LABS: ALBUMIN 3.3 g/dL (3.4-5.0); ALBUMIN/GLOBULIN RATIO 0.9 (1.0-1.7); C-REACTIVE PROTEIN 9.7 mg/L (0-3.3); CALCIUM 8.6 mg/dL (8.5-10.1); CREATININE 0.6 mg/dL (0.6-1.0); GFR 99.7; POTASSIUM 4.5 mmol/L (3.5-5.1); TOTAL BILIRUBIN 0.3 mg/dL (0.2-1.0)
[2018-07-30] MEDS: BUPRENORPHINE SL SCH (10:24)
[2018-07-30] MEDS: NALOXONE SL SCH (10:24)
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
[2018-07-30 11:00] VITALS: BP 112/57
[2018-07-30] MEDS ORDERED: VANCOMYCIN 1.25 GM in IV NORMAL SALINE 250ML 250 ML IV SCH (11:30)
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
--- NOTE | 2018-07-30 14:49 | PDOC3 ---
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 [] HENT: Normocephalic, atraumatic, bilateral external ears normal, oropharynx moist, no oral exudates, nose normal. [] Eyes: PERRLA, EOMI, conjunctiva normal, no discharge. [] Neck: Normal range of motion, no tenderness, supple, no stridor. [] Cardiovascular:Heart rate regular rhythm, no murmur [] Lungs & Thorax: Bilateral breath sounds clear to auscultation [] Abdomen: Bowel sounds normal, soft, no tenderness, no masses, no pulsatile masses. [] Skin: Warm, dry, no erythema, no rash. [] Back: No tenderness, no CVA tenderness. [] Extremities: Left lower extremity there is MINIMAL swelling there is edema there is erythema at the dorsum of the foot pedal pulses intact Neurologic: Alert and oriented X 3, normal motor function, normal sensory function, no focal deficits noted. [] Psychologic: Affect normal, judgement normal, mood anxious General: Alert, Cooperative, No acute distress Heart: Regular rate, Normal S1, Normal S2 Lungs: Clear Abdomen: No tenderness Extremities: No clubbing, No cyanosis, Normal pulses Skin: No breakdown, Oth marked scarring from remote prior accident to left lower leg, ) Labs FINAL DIAGNOSIS Problems Medical Problems: (1) Cellulitis Status: Acute Brief Hospital Course Ms. Samaniego is a 68 old [sex] who presented with [ ] CONDITION AT DISCHARGE: Stable Discharge Medications Current Medications Vancomycin HCl (Vanco Per Pharmacy) 1 each PRN DAILY PRN MC SEE COMMENTS Last administered on 07/29/18at 16:50; Start 07/29/18 at 10:45; Stop 07/30/18 at 13:22 ; Status DC Sodium Chloride 1,000 ml @ 1,000 mls/hr 1X ONCE IV Last administered on at 11:04; Start 07/29/18 at 10:45; Stop 07/29/18 at 11:44; Status DC Lorazepam (Ativan) 1 mg 1X ONCE IV Last administered on 07/29/18at 11:04; Start 07/29/18 at 10:45; Stop 07/29/18 at 10:46; Status DC Acetaminophen (Tylenol) 650 mg 1X ONCE PO Last administered on 07/29/18at 11:05 ; Start 07/29/18 at 10:45; Stop 07/29/18 at 10:46; Status DC Vancomycin HCl 2 gm/Sodium Chloride 500 ml @ 250 mls/hr 1X ONCE IV Last administered on 07/29/18at 11:29; Start 07/29/18 at 10:45; Stop 07/29/18 at 12:44 ; Status DC Pharmacy Consult (C.diff Med Screen By Rx) 1 each 1X ONCE MC ; Start 07/29/18 at 15:45; Stop 07/29/18 at 15:46; Status Cancel Fentanyl (Duragesic 75mcg/ Hr Patch) 1 patch Q72H TD ; Start 07/29/18 at 15:45; Status Cancel Ondansetron HCl (Zofran Odt) 4 mg PRN Q8HRS PRN PO NAUSEA; Start 07/29/18 at 15 :45 Fentanyl (Duragesic 100mcg/Hr Patch) 1 patch Q72H TD ; Start 07/29/18 at 15:45; Status Cancel Lubiprostone (Amitiza) 24 mcg BIDWMEALS PO ; Start 07/29/18 at 17:00 Sertraline HCl (Zoloft) 100 mg DAILY PO ; Start 07/30/18 at 09:00; Stop at 09:19; Status DC Spironolactone (Aldactone) 50 mg DAILY PO Last administered on 07/30/18at 09:08 ; Start 07/30/18 at 09:00 Zolpidem Tartrate (Ambien) 5 mg PRN QHS PRN PO INSOMNIA Last administered on 09/05at 20:42; Start 07/29/18 at 16:00 Acetaminophen (Tylenol) 650 mg PRN Q6HRS PRN PO MILD PAIN / TEMP; Start at 16:15 Vancomycin HCl 1.25 gm/Sodium Chloride 250 ml @ 167 mls/hr Q24H IV Last administered on 07/30/18at 10:59; Start 07/30/18 at 11:30; Stop 07/30/18 at 12:29 ; Status DC Vancomycin HCl (Vancomycin Trough Level) 1 each 1X ONCE MC ; Start 07/31/18 at 11:00; Stop 07/31/18 at 11:00; Status DC Lactobacillus Rhamnosus (Culturelle) 1 cap BID PO Last administered on at 09:08; Start 07/29/18 at 21:00 Nicotine (Nicoderm Cq 14mg) 1 patch PRN DAILY PRN TD SMOKING CESSATION Last administered on 07/30/18at 09:10; Start 07/29/18 at 17:15 Nicotine Polacrilex (Nicorette Gum) 1 each PRN Q1HR PRN BC SMOKING CESSATION; Start 07/29/18 at 17:15 Non-Formulary Medication 1 ea BID SL Last administered on 07/30/18at 10:24; Start 07/29/18 at 21:00 Lorazepam (Ativan) 1 mg PRN Q4HRS PRN PO ANXIETY / AGITATION Last administered on 07/30/18at 10:58; Start 07/30/18 at 00:30 Lorazepam (Ativan) 1 mg PRN Q4HRS PRN IV ANXIETY / AGITATION Last administered on 07/30/18at 01:05; Start 07/30/18 at 00:30 Sertraline HCl (Zoloft) 100 mg HS PO ; Start 07/30/18 at 21:00 Active Scripts Active Zofran Odt (Ondansetron) 4 Mg Tab.rapdis 1 Tab SL Q8HRS PRN Reported Pravastatin Sodium 40 Mg Tablet 1 Tab PO QHS Metformin Hcl Er (Metformin Hcl) 500 Mg Tab.er.24h 500 Mg PO HS Aspirin 325 Mg Tablet 1 Tab PO DAILY Zoloft (Sertraline Hcl) 50 Mg Tablet 1 Tab PO DAILY Omeprazole 20 Mg Tablet.dr 1 Tab PO PRN DAILY PRN Potassium Chloride 20 Meq Tablet.er 20 Meq PO DAILY Trazodone Hcl 50 Mg Tablet 2 Tab PO PRN QHS PRN Trazodone Hcl 50 Mg Tablet 1 Tab PO PRN QHS PRN Buprenorphin-[place]al[place]on 8-2 Mg Tb (Buprenorphine Hcl/Naloxone Hcl) 1 Each Tab.subl 4 Mg PO BID PRN Spironolactone 50 Mg Tablet 50 Mg PO DAILY Amitiza (Lubiprostone) 24 Mcg Capsule 24 Mcg PO PRN BID PRN Vital Signs Vital Signs Date Time Temp Pulse Resp B/P (MAP) Pulse Ox O2 Delivery O2 Flow Rate FiO2 07/30/18 11:00 97.2 75 18 112/57 (75) 95 Room Air 97.2 Labs Laboratory Tests Test 07/29/18 11:05 07/29/18 14:00 07/30/18 09:05 White Blood Count 9.1 x10^3/uL (4.0-11.0) 7.1 x10^3/uL (4.0-11.0) Red Blood Count 3.81 x10^6/uL (3.50-5.40) 3.83 x10^6/uL (3.50-5.40) Hemoglobin 11.5 g/dL (12.0-15.5) 11.2 g/dL (12.0-15.5) Hematocrit 33.4 % (36.0-47.0) 34.4 % (36.0-47.0) Mean Corpuscular Volume 88 fL (79-100) 90 fL (79-100) Mean Corpuscular Hemoglobin 30 pg (25-35) 29 pg (25-35) Mean Corpuscular Hemoglobin Concent 35 g/dL (31-37) 33 g/dL (31-37) Red Cell Distribution Width 17.6 % (11.5-14.5) 18.0 % (11.5-14.5) Platelet Count 322 x10^3/uL (140-400) 322 x10^3/uL (140-400) Neutrophils (%) (Auto) 73 % (31-73) 60 % (31-73) Lymphocytes (%) (Auto) 21 % (24-48) 28 % (24-48) Monocytes (%) (Auto) 6 % (0-9) 9 % (0-9) Eosinophils (%) (Auto) 0 % (0-3) 2 % (0-3) Basophils (%) (Auto) 0 % (0-3) 1 % (0-3) Neutrophils # (Auto) 6.7 x10^3uL (1.8-7.7) 4.3 x10^3uL (1.8-7.7) Lymphocytes # (Auto) 1.9 x10^3/uL (1.0-4.8) 2.0 x10^3/uL (1.0-4.8) Monocytes # (Auto) 0.5 x10^3/uL (0.0-1.1) 0.7 x10^3/uL (0.0-1.1) Eosinophils # (Auto) 0.0 x10^3/uL (0.0-0.7) 0.1 x10^3/uL (0.0-0.7) Basophils # (Auto) 0.0 x10^3/uL (0.0-0.2) 0.0 x10^3/uL (0.0-0.2) Sodium Level 138 mmol/L (136-145) 139 mmol/L (136-145) Potassium Level 3.6 mmol/L (3.5-5.1) 4.5 mmol/L (3.5-5.1) Chloride Level 103 mmol/L (98-107) 106 mmol/L (98-107) Carbon Dioxide Level 23 mmol/L (21-32) 27 mmol/L (21-32) Anion Gap 12 (6-14) 6 (6-14) Blood Urea Nitrogen 8 mg/dL (7-20) 5 mg/dL (7-20) Creatinine 0.6 mg/dL (0.6-1.0) 0.6 mg/dL (0.6-1.0) Estimated GFR (Cockcroft-Gault) 99.7 99.7 BUN/Creatinine Ratio 13 (6-20) 8 (6-20) Glucose Level 103 mg/dL (70-99) 115 mg/dL (70-99) Lactic Acid Level 1.5 mmol/L (0.4-2.0) Calcium Level 9.1 mg/dL (8.5-10.1) 8.6 mg/dL (8.5-10.1) Total Bilirubin 0.5 mg/dL (0.2-1.0) 0.3 mg/dL (0.2-1.0) Aspartate Amino Transf (AST/SGOT) 11 U/L (15-37) 16 U/L (15-37) Alanine Aminotransferase (ALT/SGPT) 15 U/L (14-59) 15 U/L (14-59) Alkaline Phosphatase 89 U/L (46-116) 88 U/L (46-116) Total Protein 7.5 g/dL (6.4-8.2) 7.0 g/dL (6.4-8.2) Albumin 3.5 g/dL (3.4-5.0) 3.3 g/dL (3.4-5.0) Albumin/Globulin Ratio 0.9 (1.0-1.7) 0.9 (1.0-1.7) Urine Collection Type Unknown Urine Color Yellow Urine Clarity Clear Urine pH 5.5 Urine Specific [place] 1.015 Urine Protein Negative mg/dL (NEG-TRACE) Urine Glucose (UA) Negative mg/dL (NEG) Urine Ketones (Stick) 40 mg/dL (NEG) Urine Blood Negative (NEG) Urine Nitrite Negative (NEG) Urine Bilirubin Negative (NEG) Urine Urobilinogen Dipstick 0.2 mg/dL (0.2 mg/dL) Urine Leukocyte Esterase Negative (NEG) Urine RBC 0 /HPF (0-2) Urine WBC 0 /HPF (0-4) Urine Squamous Epithelial Cells Few /LPF Urine Bacteria 0 /HPF (0-FEW) Erythrocyte Sedimentation Rate 30 (0-25) C-Reactive Protein, Quantitative 9.7 mg/L (0-3.3) Laboratory Tests Test 07/30/18 09:05 White Blood Count 7.1 x10^3/uL (4.0-11.0) Red Blood Count 3.83 x10^6/uL (3.50-5.40) Hemoglobin 11.2 g/dL (12.0-15.5) Hematocrit 34.4 % (36.0-47.0) Mean Corpuscular Volume 90 fL (79-100) Mean Corpuscular Hemoglobin 29 pg (25-35) Mean Corpuscular Hemoglobin Concent 33 g/dL (31-37) Red Cell Distribution Width 18.0 % (11.5-14.5) Platelet Count 322 x10^3/uL (140-400) Neutrophils (%) (Auto) 60 % (31-73) Lymphocytes (%) (Auto) 28 % (24-48) Monocytes (%) (Auto) 9 % (0-9) Eosinophils (%) (Auto) 2 % (0-3) Basophils (%) (Auto) 1 % (0-3) Neutrophils # (Auto) 4.3 x10^3uL (1.8-7.7) Lymphocytes # (Auto) 2.0 x10^3/uL (1.0-4.8) Monocytes # (Auto) 0.7 x10^3/uL (0.0-1.1) Eosinophils # (Auto) 0.1 x10^3/uL (0.0-0.7) Basophils # (Auto) 0.0 x10^3/uL (0.0-0.2) Erythrocyte Sedimentation Rate 30 (0-25) Sodium Level 139 mmol/L (136-145) Potassium Level 4.5 mmol/L (3.5-5.1) Chloride Level 106 mmol/L (98-107) Carbon Dioxide Level 27 mmol/L (21-32) Anion Gap 6 (6-14) Blood Urea Nitrogen 5 mg/dL (7-20) Creatinine 0.6 mg/dL (0.6-1.0) Estimated GFR (Cockcroft-Gault) 99.7 BUN/Creatinine Ratio 8 (6-20) Glucose Level 115 mg/dL (70-99) Calcium Level 8.6 mg/dL (8.5-10.1) Total Bilirubin 0.3 mg/dL (0.2-1.0) Aspartate Amino Transf (AST/SGOT) 16 U/L (15-37) Alanine Aminotransferase (ALT/SGPT) 15 U/L (14-59) Alkaline Phosphatase 88 U/L (46-116) C-Reactive Protein, Quantitative 9.7 mg/L (0-3.3) Total Protein 7.0 g/dL (6.4-8.2) Albumin 3.3 g/dL (3.4-5.0) Albumin/Globulin Ratio 0.9 (1.0-1.7) Allergies Allergies Coded Allergies Type Severity Reaction Last Updated Verified meperidine Allergy Mild 12/11/13 Yes morphine Allergy Mild Hives, itching 12/11/13 Yes Disposition/Orders: D/C to Home TAE GARZA MD Jul 30, 2018 14:49
--- NOTE | 2018-07-30 14:53 | DISCH ---
DISCHARGE INSTRUCTIONS Condition on Discharge Condition on Discharge: Stable Activity After Discharge Activity Instructions for Disc: Activity as tolerated Lifting Instructions after Dis: No heavy lifting, No pulling or pushing Driving Instructions after Dis: Do not drive today Weight Bearing Status after Di: As tolerated Diet after Discharge Diet after Discharge: Cardiac Checks after Discharge Checks after discharge: Check blood press - daily Contacting the [facility] after DC Call your doctor for: If your condition worsens TAE GARZA MD Jul 30, 2018 14:53
[2018-07-30] MEDS ORDERED: SERTRALINE 50 MG TABLET. PO SCH (21:00)
[2018-08-01] MEDS ORDERED: GABA-585 PO (09:27)
== END 2018-07-30 15:50 | disposition home or self-care (01) | DRG 603 ==
LOC: ER 10:08 → 5 NORTH 11:30
PROVIDERS: ADMIT Internal Medicine; ATTEND Internal Medicine
DX: L03.116 Cellulitis of left lower limb (principal); I87.2 Venous insufficiency (chronic) (peripheral); F32.9 Major depressive disorder, single episode, unspecified; K21.9 Gastro-esophageal reflux disease without esophagitis; E78.00 Pure hypercholesterolemia, unspecified; E11.9 Type 2 diabetes mellitus without complications; G89.29 Other chronic pain; K59.00 Constipation, unspecified; M54.5 Low back pain; I10 Essential (primary) hypertension; F17.210 Nicotine dependence, cigarettes, uncomplicated; E78.5 Hyperlipidemia, unspecified; Z86.73 Personal history of transient ischemic attack (TIA), and cerebral infarction without residual deficits; Z90.49 Acquired absence of other specified parts of digestive tract; Z90.710 Acquired absence of both cervix and uterus; Z88.5 Allergy status to narcotic agent; Z88.8 Allergy status to other drugs, medicaments and biological substances
CPT/HCPCS: 36415; 71045; 80053; 81001; 83605; 85025; 85651; 86140; 87040; 93971; 96365; 96366; 96375; 99406; J2060; J3370; J7030; J7040; J7050; 99285-25

== ENCOUNTER → 2019-08-13 | Outpatient (CLI) | payer MEDICARE ==
[2018-08-02 11:11] VITALS: BP 117/48
[~2019-08-13] MED LIST changes: +ASPI325T8 PO; +BUPR1TAB2 PO; +CONTRAST GIVEN. MC PRN; +GABA-585 PO; +IOHEXOL 300 MG/ML 100ML VIAL. IV ONE; +METF500T11 PO; -OMEP10CA3 PO; +OMEP10CA4 PO; +OMEP20TA8 PO; +ONDA4TAB12 PO; +POTA20TA82 PO; +PRAV40TA2 PO; +SERT50TA PO; +TRAZ-118 PO
--- NOTE | 2019-08-13 15:15 | KCIC ---
CT angiography, abdomen and pelvis 08/13/2019 INDICATION: Hematochezia. Abdominal pain. Evaluate visceral arteries COMPARISON STUDY: None Discussion: CTA imaging of the abdomen and pelvis was performed following the administration of IV contrast. 3-D reconstructions of abdominal and pelvic vasculature were created on an independent workstation and reviewed. Vascular findings: Visualized inferior thoracic aorta is unremarkable. Abdominal aorta demonstrates no aneurysm, dissection, or stenosis. The celiac artery is patent. Major branches of the celiac artery are patent. Note that the left gastric artery arises from the gastroduodenal artery. The superior mesenteric artery is patent. Major visualized branches of the SMA are grossly patent. The inferior mesenteric artery likely is minimal narrowing at its ostium but appears to be otherwise grossly patent. Single left renal artery is patent. There are 2 right renal arteries. Mild narrowing of the smaller of these arteries which supplies the superior pole noted. No hemodynamically significant aortoiliac stenosis is identified. Nonvascular findings: Moderate hiatal hernia noted. Liver is partially visualized. A small hypervascular lesion is seen in the anterior right liver adjacent possible malignant. This is nonspecific most likely represents a small left filling hemangioma. Attention on follow-up studies recommended. Adrenal glands are unremarkable. Spleen is unremarkable. Lobular appearance of the kidneys noted. There is a cyst seen in the superior pole of the right kidney measuring approximately 3 cm in diameter. Pancreas is grossly unremarkable. No bowel obstruction is seen. Note that exam is not tailored for evaluation of acute gastrointestinal hemorrhage. No precontrast imaging or delayed imaging was obtained. Stool seen throughout the large bowel. Bladder is grossly unremarkable. No free fluid or free air is seen in the abdomen or pelvis. No evidence of acute osseous abnormality is identified. IMPRESSION: 1.No evidence of significant mesenteric arterial stenosis . 2. No acute intra-abdominal abnormality is identified. 3. Chronic changes noted above CT DOSING PQRS STATEMENT: One or more of the following individualized dose reduction techniques were utilized for this examination: 1. Automated exposure control 2. Adjustment of the mA and/or kV according to patient size 3. Use of iterative reconstruction technique Electronically signed by: Duy Ocasio MD (08/13/2019 3:11 PM) [id number]
== END | disposition home or self-care (01) ==
LOC: KCIC CT 12:30
PROVIDERS: ATTEND Internal Medicine
DX: K44.9 Diaphragmatic hernia without obstruction or gangrene (principal); I77.1 Stricture of artery; K76.89 Other specified diseases of liver; N28.1 Cyst of kidney, acquired
CPT/HCPCS: 74174; 82565; Q9967

== ENCOUNTER 2019-09-12 16:48 | Emergency (ER) | payer MEDICARE ==
[~2019-09-12] VITALS: Ht 175.3 cm; Wt 78.0 kg
[~2019-09-12 16:48] MED LIST changes: -CONTRAST GIVEN. MC PRN; -IOHEXOL 300 MG/ML 100ML VIAL. IV ONE; -ONDA4TAB12 PO
[2019-09-12] MEDS ORDERED: FAMOTIDINE 20 MG/2 ML VIAL IVP ONE (17:30)
[2019-09-12] MEDS ORDERED: ONDANSETRON PF 4 MG/2 ML VIAL. IVP ONE (17:30)
[2019-09-12 17:53] LABS: BASO # 0.1 x10^3/uL (0.0-0.2); BASO % 1 % (0-3); EOS # 0.1 x10^3/uL (0.0-0.7); EOS % 1 % (0-3); HEMATOCRIT 39.1 % (36.0-47.0); HEMOGLOBIN 12.8 g/dL (12.0-15.5); LYMPH # 2.7 x10^3/uL (1.0-4.8); LYMPH % 26 % (24-48); MEAN CORPUSCULAR HEMOGLOBIN 29 pg (25-35); MEAN CORPUSCULAR HGB CONC 33 g/dL (31-37); MEAN CORPUSCULAR VOLUME 90 fL (79-100); MONO # 0.6 x10^3/uL (0.0-1.1); MONO % 6 % (0-9); NEUT # 6.9 x10^3/uL (1.8-7.7); NEUT % 66 % (31-73); PLATELET COUNT 376 x10^3/uL (140-400); RED BLOOD COUNT 4.36 x10^6/uL (3.50-5.40); RED CELL DISTRIBUTION WIDTH 17.4 % (11.5-14.5); WHITE BLOOD COUNT 10.4 x10^3/uL (4.0-11.0)
[2019-09-12 18:05] LABS: CALCIUM 9.6 mg/dL (8.5-10.1); CREATININE 0.8 mg/dL (0.6-1.0); GFR 71.3
[2019-09-12] MEDS ORDERED: IOHEXOL 300 MG/ML 100ML VIAL. IV ONE (18:15)
[2019-09-12 18:18] LABS: ALBUMIN 3.9 g/dL (3.4-5.0); ALBUMIN/GLOBULIN RATIO 0.9 (1.0-1.7); TOTAL BILIRUBIN 0.3 mg/dL (0.2-1.0); TOTAL PROTEIN 8.4 g/dL (6.4-8.2)
[2019-09-12] MEDS ORDERED: CONTRAST GIVEN. MC PRN (18:30)
--- NOTE | 2019-09-12 18:55 | RAD ---
CT scan abdomen and pelvis with contrast 09/12/2019 CLINICAL HISTORY: Abdominal pain with diarrhea. TECHNIQUE: After the intravenous administration of 75 cc of Omnipaque 300 only, contiguous, 5 mm axial sections were obtained through the abdomen and pelvis. One or more of the following individualized dose reduction techniques were utilized for this study: 1. Automated exposure control. 2. Adjustment of the mA and/or kV according to patient size. 3. Use of iterative reconstruction technique. FINDINGS: Comparison is made to a CTA of the abdomen and pelvis dated 07/17/2018. Images through the lung bases demonstrate minimal dependent subsegmental atelectasis bilaterally. The liver, spleen, pancreas, and adrenal glands are within normal limits. Rounded low-attenuation lesions are seen involving both kidneys. These measure 3 mm to 3 cm in size. They likely represent cysts. Atherosclerotic calcification of the abdominal aorta and its branches is seen. The abdominal aorta tapers normally. Surgical clips are seen within the gallbladder fossa consistent with a cholecystectomy. There is a small sliding hiatal hernia. No free fluid or free air is seen within the abdomen. Air and stool are seen throughout the colon. There is no evidence of bowel obstruction. The appendix is not visualized. No inflammatory changes are seen surrounding the cecum. Images through pelvis demonstrate the urinary bladder distended with urine. Calcifications are seen within the pelvis consistent with phleboliths. An intramedullary angela is seen within the proximal left femur. Mild S-shaped curvature of the thoracolumbar spine is seen. Degenerative changes are seen involving lower thoracic and throughout the lumbar spine along with both hips. IMPRESSION: No acute abnormality is seen. Electronically signed by: Avery Morales MD (09/12/2019 6:52 PM) [facility]
[2019-09-12 18:57] LABS: BILIRUBIN,URINE NEGATIVE (NEG); CLARITY,URINE CLEAR; COLOR,URINE YELLOW; NITRITE,URINE NEGATIVE (NEG); PROTEIN,URINE NEGATIVE (NEG-TRACE); UROBILINOGEN,URINE 0.2 mg/dL (0.2 mg/dL)
[2019-09-12 19:03] LABS: RBC,URINE 0 /HPF (0-2)
[2019-09-12 19:04] LABS: BACTERIA,URINE MODERATE /HPF (0-FEW)
[2019-09-12 19:05] LABS: SQUAMOUS EPITHELIAL CELL,UR MOD /LPF; YEAST,URINE PRESENT /HPF
[2019-09-12 19:11] LABS: BARBITURATES NEG (NEG); BENZODIAZEPINES NEG (NEG); CANNABINOIDS NEG (NEG); COCAINE NEG (NEG); METHADONE NEG (NEG); OPIATES NEG (NEG); PHENCYCLIDINE NEG (NEG)
[2019-09-12 19:25] LABS: AMPHETAMINE/METHAMPHETAMINE NEG (NEG)
[2019-09-12 19:30] VITALS: BP 122/61
[2019-09-12] MEDS ORDERED: fentaNYL PF VIAL 100 MCG/2 ML VIAL IVP ONE (19:30)
--- NOTE | 2019-09-12 19:30 | PHYS DOC ---
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 She states she been seen by her own PCP for the same and they reffered her to GI Dr. Gotti for colonoscopy. She states she is currently on Linzess for constipation. She reports she was seen at [facility] a couple weeks ago for the same complaint and had a full workup including a CAT scan of the abdomen and pelvic which was negative for any acute findings. 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 She is currently asking for pain medicine. She states she is allergic to morphine. (PANKAJ GLYNN APRN) Review of Systems Review of Systems Constitutional: Denies fever or chills [] Eyes: Denies change in visual acuity, redness, or eye pain [] HENT: Denies nasal congestion or sore throat [] Respiratory: Denies cough or shortness of breath [] Cardiovascular: No additional information not addressed in HPI [] GI: Reports chronic abdominal pain with diarrhea, denies vomiting : Denies dysuria or hematuria [] Musculoskeletal: Denies back pain or joint pain [] Integument: Denies rash or skin lesions [] Neurologic: Denies headache, focal weakness or sensory changes [] All other systems were reviewed and found to be within normal limits, except as documented in this note. (PANKAJ GLYNN APRN) Current Medications Current Medications Current Medications Medications (Trade) Dose Ordered Sig/Rayshawn Start Time Stop Time Status Last Admin Dose Admin Famotidine (Pepcid Vial) 20 mg 1X ONCE 09/12/19 17:30 09/12/19 17:32 DC 09/12/19 17:53 20 MG Fentanyl Citrate (Fentanyl 2ml Vial) 100 mcg STK-MED ONCE 09/12/19 19:33 09/12/19 19:34 DC Info (CONTRAST GIVEN -- Rx MONITORING) 1 each PRN DAILY PRN 09/12/19 18:30 09/12/19 20:10 DC Iohexol (Omnipaque 300 Mg/ml) 75 ml 1X ONCE 09/12/19 18:15 09/12/19 18:16 DC 09/12/19 18:20 75 ML Ondansetron HCl (Zofran) 4 mg 1X ONCE 09/12/19 17:30 09/12/19 17:32 DC 09/12/19 17:53 4 MG (MIREYA MENDOSA DO) Allergies Allergies Allergies Coded Allergies Type Severity Reaction Last Updated Verified meperidine Allergy Mild 12/11/13 Yes morphine Allergy Mild Hives, itching 12/11/13 Yes (MIREYA MENDOSA DO) Physical Exam Physical Exam Constitutional: Well developed, well nourished, no acute distress, non-toxic appearance. [] HENT: Normocephalic, atraumatic, bilateral external ears normal, oropharynx moist, no oral exudates, nose normal. [] Eyes: PERRLA, EOMI, conjunctiva normal, no discharge. [] Neck: Normal range of motion, no tenderness, supple, no stridor. [] Cardiovascular:Heart rate regular rhythm, no murmur [] Lungs & Thorax: Bilateral breath sounds clear to auscultation [] Abdomen: Bowel sounds normal, soft, no tenderness, no masses, no pulsatile masses. [] Skin: Warm, dry, no erythema, no rash. [] Back: No tenderness, no CVA tenderness. [] Extremities: No tenderness, no cyanosis, no clubbing, ROM intact, no edema. [] Neurologic: Alert and oriented X 3, normal motor function, normal sensory function, no focal deficits noted. [] Psychologic: Affect normal, judgement normal, mood normal. [] (PANKAJ GLYNN APRN) Current Patient Data Vital Signs Vital Signs Date Time Temp Pulse Resp B/P (MAP) Pulse Ox O2 Delivery O2 Flow Rate FiO2 09/12/19 20:07 18 96 Room Air 09/12/19 19:30 96 122/61 (81) 09/12/19 16:58 97.8 97.8 (MIREYA MENDOSA DO) Lab Values Laboratory Tests Test 09/12/19 17:30 09/12/19 18:25 White Blood Count 10.4 x10^3/uL (4.0-11.0) Red Blood Count 4.36 x10^6/uL (3.50-5.40) Hemoglobin 12.8 g/dL (12.0-15.5) Hematocrit 39.1 % (36.0-47.0) Mean Corpuscular Volume 90 fL (79-100) Mean Corpuscular Hemoglobin 29 pg (25-35) Mean Corpuscular Hemoglobin Concent 33 g/dL (31-37) Red Cell Distribution Width 17.4 % (11.5-14.5) H Platelet Count 376 x10^3/uL (140-400) Neutrophils (%) (Auto) 66 % (31-73) Lymphocytes (%) (Auto) 26 % (24-48) Monocytes (%) (Auto) 6 % (0-9) Eosinophils (%) (Auto) 1 % (0-3) Basophils (%) (Auto) 1 % (0-3) Neutrophils # (Auto) 6.9 x10^3/uL (1.8-7.7) Lymphocytes # (Auto) 2.7 x10^3/uL (1.0-4.8) Monocytes # (Auto) 0.6 x10^3/uL (0.0-1.1) Eosinophils # (Auto) 0.1 x10^3/uL (0.0-0.7) Basophils # (Auto) 0.1 x10^3/uL (0.0-0.2) Sodium Level 142 mmol/L (136-145) Potassium Level 4.0 mmol/L (3.5-5.1) Chloride Level 106 mmol/L (98-107) Carbon Dioxide Level 23 mmol/L (21-32) Anion Gap 13 (6-14) Blood Urea Nitrogen 10 mg/dL (7-20) Creatinine 0.8 mg/dL (0.6-1.0) Estimated GFR (Cockcroft-Gault) 71.3 BUN/Creatinine Ratio 13 (6-20) Glucose Level 108 mg/dL (70-99) H Calcium Level 9.6 mg/dL (8.5-10.1) Total Bilirubin 0.3 mg/dL (0.2-1.0) Aspartate Amino Transferase (AST) 14 U/L (15-37) L Alanine Aminotransferase (ALT) 13 U/L (14-59) L Alkaline Phosphatase 99 U/L (46-116) Total Protein 8.4 g/dL (6.4-8.2) H Albumin 3.9 g/dL (3.4-5.0) Albumin/Globulin Ratio 0.9 (1.0-1.7) L Lipase 130 U/L (73-393) Ethyl Alcohol Level < 10 mg/dL (0-10) Urine Collection Type Unknown Urine Color Yellow Urine Clarity Clear Urine pH 5.0 Urine Specific [place] 1.020 Urine Protein Negative mg/dL (NEG-TRACE) Urine Glucose (UA) Negative mg/dL (NEG) Urine Ketones (Stick) Negative mg/dL (NEG) Urine Blood Negative (NEG) Urine Nitrite Negative (NEG) Urine Bilirubin Negative (NEG) Urine Urobilinogen Dipstick 0.2 mg/dL (0.2 mg/dL) Urine Leukocyte Esterase Negative (NEG) Urine RBC 0 /HPF (0-2) Urine WBC 1-4 /HPF (0-4) Urine Squamous Epithelial Cells Mod /LPF Urine Bacteria Moderate /HPF (0-FEW) Urine Mucus Mod /LPF Urine Yeast Present /HPF Urine Opiates Screen Neg (NEG) Urine Methadone Screen Neg (NEG) Urine Barbiturates Neg (NEG) Urine Phencyclidine Screen Neg (NEG) Urine Amphetamine/Methamphetamine Neg (NEG) Urine Benzodiazepines Screen Neg (NEG) Urine Cocaine Screen Neg (NEG) Urine Cannabinoids Screen Neg (NEG) Urine Ethyl Alcohol Neg (NEG) Laboratory Tests 09/12/19 17:30 Laboratory Tests 09/12/19 17:30 (MIREYA MENDOSA DO) EKG EKG [] (MUTUNGA,PANKAJ RAIL SIGNAL DESIGNER) Radiology/Procedures Radiology/Procedures []PROCEDURE: CT ABD PELV W/ IV CONTRST ONLY CT scan abdomen and pelvis with contrast 09/12/2019 CLINICAL HISTORY: Abdominal pain with diarrhea. TECHNIQUE: After the intravenous administration of 75 cc of Omnipaque 300 only, contiguous, 5 mm axial sections were obtained through the abdomen and pelvis. One or more of the following individualized dose reduction techniques were utilized for this study: 1. Automated exposure control. 2. Adjustment of the mA and/or kV according to patient size. 3. Use of iterative reconstruction technique. FINDINGS: Comparison is made to a CTA of the abdomen and pelvis dated 07/17/2018. Images through the lung bases demonstrate minimal dependent subsegmental atelectasis bilaterally. The liver, spleen, pancreas, and adrenal glands are within normal limits. Rounded low-attenuation lesions are seen involving both kidneys. These measure 3 mm to 3 cm in size. They likely represent cysts. Atherosclerotic calcification of the abdominal aorta and its branches is seen. The abdominal aorta tapers normally. Surgical clips are seen within the gallbladder fossa consistent with a cholecystectomy. There is a small sliding hiatal hernia. No free fluid or free air is seen within the abdomen. Air and stool are seen throughout the colon. There is no evidence of bowel obstruction. The appendix is not visualized. No inflammatory changes are seen surrounding the cecum. Images through pelvis demonstrate the urinary bladder distended with urine. Calcifications are seen within the pelvis consistent with phleboliths. An intramedullary angela is seen within the proximal left femur. Mild S-shaped curvature of the thoracolumbar spine is seen. Degenerative changes are seen involving lower thoracic and throughout the lumbar spine along with both hips. IMPRESSION: No acute abnormality is seen. Electronically signed by: Avery Morales MD (09/12/2019 6:52 PM) [facility] DICTATED and SIGNED BY: AVERY MORALES MD DATE: 09/12/19 780 (PANKAJ GLYNN APRN) Course & Med Decision Making Course & Med Decision Making Pertinent Labs and Imaging studies reviewed. (See chart for details) This is a 69-year-old female patient who presents to the ED today complaining of chronic abdominal pain and chronic diarrhea. Symptoms for 1 month. Has been seen by the PCP, was referred to GI. Patient has recovered from drug addiction and is currently asking for pain medications. Labs are negative for any acute findings, CT of the abdomen and pelvic is negative. Patient continued to ask for pain medicine in the ED. She was given 1 dose of fentanyl and we discussed the chances of her recurrence of her addiction. Informed her I will not send her home with any narcotics. Sent her home with Zofran. Recommended she follows up with GI. She already has an appointment next month. (PANKAJ GLYNN APRN) Dragon Disclaimer Dragon Disclaimer This electronic medical record was generated, in whole or in part, using a voice recognition dictation system. (PANKAJ GLYNN APRN) Departure Departure Impression: Primary Impression: Chronic abdominal pain Disposition: HOME, SELF-CARE Condition: STABLE Referrals: SUSAN LEIVA MD (PCP) follow up next week EMY GOTTI MD follow up next week Patient Instructions: Abdominal Pain Additional Instructions: You were evaluated in the emergency room for abdominal pain and diarrhea. Your work up was negative for any acute findings. Please follow-up with your GI doct or and primary care doctor next week. Your prescription for Zofran was sent to your pharmacy [facility] Ondansetron (ONDANSETRON ODT) 4 Mg Tab.rapdis 1 TAB PO PRN Q6-8HRS, #16 TAB Prov: PANKAJ GLYNN APRN 09/12/19 Attending Signature Attending Signature I have reviewed the PA/NUCLEAR ENGINEER's note and plan of care. I was available for consultation as needed during the patient's visit in the emergency department. I agree with the clinical impression, plan, and disposition. (MIREYA MENDOSA DO) PANKAJ GLYNN APRN Sep 12, 2019 19:30 MIREYA MENDOSA DO Sep 13, 2019 05:29
[2019-09-12] MEDS ORDERED: fentaNYL PF VIAL 100 MCG/2 ML VIAL ONE (19:33)
[2019-09-12] MEDS ORDERED: ONDA4TAB12 PO (19:50)
== END 2019-09-12 19:57 | disposition home or self-care (01) ==
LOC: ER 16:48
DX: G89.29 Other chronic pain (principal); R10.9 Unspecified abdominal pain; R19.7 Diarrhea, unspecified; F41.9 Anxiety disorder, unspecified; F32.9 Major depressive disorder, single episode, unspecified; E11.9 Type 2 diabetes mellitus without complications; K21.9 Gastro-esophageal reflux disease without esophagitis; F17.200 Nicotine dependence, unspecified, uncomplicated; E78.00 Pure hypercholesterolemia, unspecified; Z86.73 Personal history of transient ischemic attack (TIA), and cerebral infarction without residual deficits; Z90.89 Acquired absence of other organs; Z90.49 Acquired absence of other specified parts of digestive tract; Z90.710 Acquired absence of both cervix and uterus; Z88.5 Allergy status to narcotic agent; Z88.8 Allergy status to other drugs, medicaments and biological substances
CPT/HCPCS: 36415; 74177; 80053; 80307; 81001; 83690; 85025; 87086; 96374; 96375; 99285; G0480; J2405; J3010; J3490; Q9967

== ENCOUNTER → 2019-10-09 | Day surgery (SDC) | payer MEDICARE ==
[~2019-10-09] MED LIST changes: +DICY20TA3 PO; +DULO60CA6 PO; +FLUT1DIS3 IH; +IV RINGERS,LACTATED 1000ML 1,000 ML IV SCH; +LIDOCAINE 1% PF 2 ML VIAL. ID PRN; +LIDOCAINE 2% PF 5 ML VIAL. ONE; +LINZESS145 MCG PO; +LORA-434 PO; +MOME13HF IH; +ONDA4TAB12 PO; +ONDANSETRON PF 4 MG/2 ML VIAL. IV PRN; +POTA20TA4 PO; -POTA20TA82 PO; +PROCHLORPERAZINE 10 MG/2 ML VIAL. IV PRN; +PROPOFOL 20 ML IV ONE; +PROPOFOL 40 ML IV ONE
--- NOTE | 2019-10-09 09:53 | PREOP HP ---
DATE OF SERVICE: 10/09/2019 REQUESTING PHYSICIAN: Ena Greenberg MD PRIMARY CARE PHYSICIAN: Ena Greenberg MD REASON FOR PROCEDURE: History of colon polyps and abdominal pain. HISTORY OF PRESENT ILLNESS: This is a 69-year-old female who presents with abdominal pain and history of colon polyps. ALLERGIES: DEMEROL AND MORPHINE. PAST MEDICAL HISTORY: Colon polyps. FAMILY MEDICAL HISTORY: Father of appendiceal cancer. MEDICATIONS: MAR reviewed. REVIEW OF SYSTEMS: A 13-point review of systems was done and is positive as per HPI and otherwise negative. PHYSICAL EXAMINATION: VITAL SIGNS: She is afebrile. Vital signs are stable. GENERAL: She is a well-developed, well-nourished female, in no apparent distress. ASSESSMENT AND PLAN: 1. History of colon polyps. 2. Abdominal pain. The risks and benefits of the upper and lower endoscopy were explained and she has agreed to proceed. EMY GOTTI MD DR: ELIZABETH/po JOB#: [id number] / [id number]
[2019-10-09 09:54] VITALS: BP 103/51
--- NOTE | 2019-10-10 15:07 | PATHOLOGY ---
[facility] Accession Number: [id number] . 01 Material submitted: . PART A: small bowel - SMALL BOWEL BIOPSY PART B: stomach - GASTRIC ANTRUM BODY BIOPSY PART C: esophagus - DISTAL ESOPHAGUS BIOPSY. Modifiers: distal PART D: colon - TRANSVERSE COLON POLYP. Modifiers: transverse PART E: colon - DESCENDING COLON POLYP. Modifiers: descending PART F: colon - SIGMOID COLON POLYP. Modifiers: sigmoid . 01 Clinical history: . Pre-OP DX: Abdominal pain, GERD, Hx of polyps Post-OP DX: Inflammation, polyps . 02 Diagnosis: A. Small bowel biopsies, duodenum: - No significant pathologic abnormalities. . B. Gastric biopsies, antrum: - Congestion and slight chronic inflammation. . C. Esophageal biopsies, distal esophagus: - Segments of gastric mucosa showing chronic inflammation. . D. Colon biopsies, transverse colon polyps: - Segments of tubular adenoma and segments of colonic mucosa consistent with prominent mucosal fold. . E. Colon biopsies, descending colon polyp: - Tubular adenoma. . F. Colon biopsies, sigmoid colon polyps: - Hyperplastic polyps. LBQ 10/10/2019 1043 Local . 02 Comment: Sections of the small bowel biopsy reveal segments of duodenal mucosa. There are no sprue-like changes or significant inflammatory changes. . Sections of the gastric biopsy reveal segments of gastric antral and gastric body mucosa showing congestion and slight chronic inflammation. A properly controlled immunoperoxidase stain for Helicobacter is negative for Helicobacter organisms. . Sections of the distal esophageal biopsy reveal segments of gastric mucosa showing mild to focal moderate chronic inflammation. There is no squamous esophageal mucosa. There is no evidence of Moreland's change, dysplasia, or malignancy. . Sections of the transverse colon biopsy reveal three segments of tubular adenoma and three segments of colonic mucosa consistent with prominent mucosal fold. There is no high grade dysplasia or evidence of malignancy. . Sections of the descending colon biopsy reveal a tubular adenoma showing no high grade dysplasia or evidence of malignancy. . Sections of the sigmoid colon biopsies reveal hyperplastic polyps. There are no adenomatous changes or evidence of malignancy. (JPM/db; 10/10/2019) . Special stain performed: Immunoperoxidase stain for Helicobacter on B1 . 02 Electronically signed: . Bib Vasquez MD, Pathologist NPI- [id number] . 01 Gross description: . A. Received in formalin labeled "Granbury, Mitra, small bowel BX," are 4 segments of moctezuma soft tissue measuring 1.1 x 0.5 x 0.2 cm in aggregate dimensions and ranging from 0.4 to 0.5 cm in maximum dimension. The specimen is submitted entirely in cassette A1. . B. Received in formalin labeled "Granbury, Mitra, gastric antrum body BX," are 4 segments of moctezuma soft tissue measuring 0.8 x 0.6 x 0.3 cm in aggregate dimensions and ranging from 0.2 to 0.6 cm in maximum dimension. The specimen is submitted entirely in cassette B1. . C. Received in formalin labeled "Danette, Mitra, distal esophagus BX," are 2 segments of moctezuma soft tissue measuring 0.7 x 0.2 x 0.2 cm in aggregate dimensions and ranging from 0.3 to 0.4 cm in maximum dimension. The specimen is submitted entirely in cassette C1. . D. Received in formalin labeled "Granbury, Mitra, transverse colon polyp," are 6 segments of moctezuma soft tissue measuring 0.8 x 0.8 x 0.2 cm in aggregate dimensions and ranging from 0.3 to 0.4 cm in maximum dimension. The specimen is submitted entirely in cassette D1. . E. Received in formalin labeled "Granbury, Mitra, descending colon polyp," are 2 segments of moctezuma soft tissue measuring 0.8 x 0.3 x 0.2 cm in aggregate dimensions and measuring 0.4 cm each in maximum dimension. The specimen is submitted entirely in cassette E1. . F. Received in formalin labeled "Danette, Mitra, sigmoid colon polyp," is a single segment of moctezuma soft tissue measuring 0.5 cm in maximum dimension. The specimen is entirely submitted in cassette F1. (TSD; 10/09/2019) TOB/TOB 10/09/2019 1631 Local . 02 Pathologist provided ICD-10: K29.50, K20.9, D12.3, D12.4, K63.5 . 02 CPT . 252866, [id number], 135963, 133894, 487491, [id number], [id number] Specimen Comment: A courtesy copy of this report has been sent to [phone], [facility]-143- Specimen Comment: [id number], Specimen Comment: Report sent to , and Performed at: 01 [facility] [address] [place] [address] [address], [place] [id number] MD Yvon Ferguson MD Phone: [phone] Performed at: 02 [facility] [address] [place] [id number] MD Bib Vasquez MD Phone: [phone]
== END ==
LOC: ENDOS 07:59
PROVIDERS: ATTEND Internal Medicine Gastroenterology
DX: R10.11 Right upper quadrant pain (principal); K63.5 Polyp of colon; K44.9 Diaphragmatic hernia without obstruction or gangrene; K29.50 Unspecified chronic gastritis without bleeding; K21.0 Gastro-esophageal reflux disease with esophagitis; E78.00 Pure hypercholesterolemia, unspecified; I10 Essential (primary) hypertension; E11.9 Type 2 diabetes mellitus without complications; F32.9 Major depressive disorder, single episode, unspecified; E66.3 Overweight; Z68.27 Body mass index [BMI] 27.0-27.9, adult; Z90.710 Acquired absence of both cervix and uterus; Z86.73 Personal history of transient ischemic attack (TIA), and cerebral infarction without residual deficits; Z87.891 Personal history of nicotine dependence; Z90.49 Acquired absence of other specified parts of digestive tract; Z79.84 Long term (current) use of oral hypoglycemic drugs
CPT/HCPCS: 43239; 45380; 88305; 88342; J2001; J2704

== ENCOUNTER → 2019-12-03 | Outpatient (CLI) | payer MEDICARE ==
[2019-10-09 09:54] VITALS: BP 103/51
[~2019-12-03] MED LIST changes: -IV RINGERS,LACTATED 1000ML 1,000 ML IV SCH; -LIDOCAINE 1% PF 2 ML VIAL. ID PRN; -LIDOCAINE 2% PF 5 ML VIAL. ONE; -ONDANSETRON PF 4 MG/2 ML VIAL. IV PRN; -PROCHLORPERAZINE 10 MG/2 ML VIAL. IV PRN; -PROPOFOL 20 ML IV ONE; -PROPOFOL 40 ML IV ONE
--- NOTE | 2019-12-03 11:57 | RAD ---
Gastric Emptying Study Indication: Nausea, epigastric pain. Procedure: Anterior and posterior projection static images are obtained over the stomach following oral administration of 2 mCi of 99 M technetium sulfur colloid in a solid meal.Time points include an immediate baseline, and 1, 2, 3 hours post ingestion. Findings: There is progressive emptying of the stomach on sequential images. Percentage retention at... One hour is 34% (normal 34.-91%). Two hours 12% (normal 3-60%). Three hours 1% (normal 0.5-28%). Impression: Normal 4 gastric emptying times Consensus Recommendations for Gastric Emptying Scintigraphy: A Joint Report of the [place] Neurogastro[employer] Society and the Society of Nuclear Medicine: J. Nucl. Med. Technol. January 2008 vol. 36 no. 1 44-54 Grading for severity of delayed GE based on the 4-h value: grade 1 (mild): 11?20% retention at 4 h grade 2 (moderate): 21?35% retention at 4 h grade 3 (severe): 36?50% retention at 4 h grade 4 (very severe): >50% retention at 4 h. Electronically signed by: Duy Ocasio MD (12/03/2019 11:54 AM) [id number]
== END | disposition home or self-care (01) ==
LOC: NM 08:07
PROVIDERS: ATTEND Internal Medicine Gastroenterology
DX: R10.13 Epigastric pain (principal); R11.0 Nausea
CPT/HCPCS: 78264; A9541

== ENCOUNTER → 2020-02-12 | Outpatient (CLI) | payer MEDICARE ==
[2019-10-09 09:54] VITALS: BP 103/51
[~2020-02-12] MED LIST changes: +BUPR1TAB PO; -BUPR1TAB2 PO
[2020-02-12 16:06] LABS: BASO # 0.1 x10^3/uL (0.0-0.2); BASO % 1 % (0-3); EOS # 0.2 x10^3/uL (0.0-0.7); EOS % 3 % (0-3); HEMATOCRIT 34.9 % (36.0-47.0); HEMOGLOBIN 11.5 g/dL (12.0-15.5); LYMPH % 23 % (24-48); MEAN CORPUSCULAR HEMOGLOBIN 28 pg (25-35); MEAN CORPUSCULAR HGB CONC 33 g/dL (31-37); MEAN CORPUSCULAR VOLUME 87 fL (79-100); MONO # 0.6 x10^3/uL (0.0-1.1); MONO % 7 % (0-9); NEUT # 5.9 x10^3/uL (1.8-7.7); NEUT % 66 % (31-73); PLATELET COUNT 320 x10^3/uL (140-400); RED BLOOD COUNT 4.03 x10^6/uL (3.50-5.40); RED CELL DISTRIBUTION WIDTH 18.8 % (11.5-14.5); WHITE BLOOD COUNT 8.9 x10^3/uL (4.0-11.0)
[2020-02-12 16:19] LABS: ALBUMIN 3.3 g/dL (3.4-5.0); ALBUMIN/GLOBULIN RATIO 0.9 (1.0-1.7); BARBITURATES NEG (NEG); BENZODIAZEPINES NEG (NEG); CALCIUM 8.7 mg/dL (8.5-10.1); CANNABINOIDS NEG (NEG); COCAINE NEG (NEG); CREATININE 0.7 mg/dL (0.6-1.0); GFR 83.2; METHADONE NEG (NEG); OPIATES NEG (NEG); PHENCYCLIDINE NEG (NEG); POTASSIUM 4.1 mmol/L (3.5-5.1); TOTAL BILIRUBIN 0.2 mg/dL (0.2-1.0)
[2020-02-12 16:28] LABS: AMPHETAMINE/METHAMPHETAMINE NEG (NEG)
== END ==
LOC: LAB 15:35
PROVIDERS: ATTEND Psychiatry & Neurology Neurology
DX: R51 Headache (principal); E78.5 Hyperlipidemia, unspecified
CPT/HCPCS: 36415; 80053; 80307; 85025; 85651

== ENCOUNTER → 2020-03-19 | Outpatient (CLI) | payer MEDICARE ==
[2019-10-09 09:54] VITALS: BP 103/51
[~2020-03-19] MED LIST changes: +GADOTERATE 7.5 MMOL/15ML VIAL. IVP ONE
--- NOTE | 2020-03-19 12:14 | RAD ---
MRI Brain with and without contrast History:Headache Technique: Multiplanar, multi sequential pre and postcontrast MR imaging was performed of the brain. Comparison: May 17, 2016 Findings: There is no evidence of recent infarct or cytotoxic edema. The ventricles, sulci, and cisterns are within normal limits in size and configuration. There is no significant midline shift, intraaxial mass effect, or focal abnormal extra-axial fluid collection. There is again very minimal T2 and FLAIR hyperintense signal near the frontal horns. There are now a few tiny foci of nonenhancing T2 hyperintense signal of the frontal white matter greater on the right.. 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 There is no nodular parenchymal or leptomeningeal enhancement. There is preservation of the major intracranial flow-voids at the skull base. The cerebellar tonsils are normal in location. There is no significant abnormality of the pineal gland or pituitary gland. There is again inferior left maxillary sinus mucous retention cyst on the order of 2.4 cm. There is patchy minimal ethmoid air cell mucosal thickening. There is some increased CSF signal of the optic nerve sheaths bilaterally as seen previously. Convex superior margin of the pituitary gland is unchanged, overall size of pituitary gland similar. The mastoid air cells are aerated. There is similar mild nonspecific heterogeneity of the marrow of the nonexpanded clivus. Impression: 1. There are a few new tiny foci of nonenhancing T2 and FLAIR hyperintense signal greatest of the right frontal white matter. Nonspecific findings could be due to chronic microvascular ischemic disease in a patient this age. White matter changes can be seen in patients with migraine headaches if corresponding history. 2. There is again nonspecific superior convex margin of the pituitary gland, overall size of the pituitary gland unchanged. 3. There is again some nonspecific increased CSF signal of the optic nerve sheaths bilaterally. 4. There is incidental left cerebellar developmental venous anomaly. Electronically signed by: Kervin Luong MD (03/19/2020 12:12 PM) [id number]
== END | disposition home or self-care (01) ==
LOC: MRI 10:02
PROVIDERS: ATTEND Psychiatry & Neurology Neurology
DX: J34.1 Cyst and mucocele of nose and nasal sinus (principal); J34.89 Other specified disorders of nose and nasal sinuses; Q04.8 Other specified congenital malformations of brain
CPT/HCPCS: 70553; A9575

== ENCOUNTER → 2020-04-05 | Outpatient (CLI) | payer MEDICARE ==
[2019-10-09 09:54] VITALS: BP 103/51
[~2020-04-05] MED LIST changes: -GADOTERATE 7.5 MMOL/15ML VIAL. IVP ONE; +METF-658 PO; -METF500T11 PO
--- NOTE | 2020-04-05 14:50 | RAD ---
VENOUS LOWER EXTREMITY LEFT 04/05/2020 2:30 PM Clinical Information: Left leg swelling. Comparison: None. Technique: Multiple grayscale, color Doppler, and spectral Doppler sonographic images of the lower extremity venous structures were obtained. Findings: The left common femoral, femoral, and popliteal veins exhibit normal compression, respiratory phasicity, and augmentation. No intraluminal thrombi are identified. Color Doppler flow is demonstrated in the left posterior tibial veins. Greater saphenous veins are patent at the saphenofemoral junction. Impression: 1. No evidence of deep venous thrombosis. Electronically signed by: Samra Puente MD (04/05/2020 2:47 PM) [facility]
== END | disposition home or self-care (01) ==
LOC: US 14:02
PROVIDERS: ATTEND Family Medicine
DX: M79.89 Other specified soft tissue disorders (principal)
CPT/HCPCS: 93971

== ENCOUNTER 2020-04-16 15:08 | Emergency (ER) | payer MEDICARE ==
[~2020-04-16] VITALS: Ht 167.6 cm; Wt 86.0 kg
[2020-04-16] MEDS ORDERED: ONDANSETRON PF 4 MG/2 ML VIAL. IVP ONE (15:45)
[2020-04-16] MEDS: fentaNYL PF VIAL 100 MCG/2 ML VIAL IV PRN ×2 (15:56→18:11)
[2020-04-16 16:04] LABS: BASO # 0.1 x10^3/uL (0.0-0.2); BASO % 1 % (0-3); EOS # 0.2 x10^3/uL (0.0-0.7); EOS % 2 % (0-3); HEMATOCRIT 34.9 % (36.0-47.0); HEMOGLOBIN 11.7 g/dL (12.0-15.5); LYMPH # 1.8 x10^3/uL (1.0-4.8); LYMPH % 14 % (24-48); MEAN CORPUSCULAR HEMOGLOBIN 28 pg (25-35); MEAN CORPUSCULAR HGB CONC 33 g/dL (31-37); MEAN CORPUSCULAR VOLUME 84 fL (79-100); MONO # 0.7 x10^3/uL (0.0-1.1); MONO % 6 % (0-9); NEUT # 10.1 x10^3/uL (1.8-7.7); NEUT % 78 % (31-73); PLATELET COUNT 339 x10^3/uL (140-400); RED BLOOD COUNT 4.13 x10^6/uL (3.50-5.40); RED CELL DISTRIBUTION WIDTH 17.7 % (11.5-14.5); WHITE BLOOD COUNT 12.9 x10^3/uL (4.0-11.0)
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
[2020-04-16 16:10] LABS: CALCIUM 8.8 mg/dL (8.5-10.1); CREATININE 0.8 mg/dL (0.6-1.0); GFR 71.1; POTASSIUM 4.1 mmol/L (3.5-5.1)
[2020-04-16 16:16] LABS: ALBUMIN 3.4 g/dL (3.4-5.0); TOTAL BILIRUBIN 0.2 mg/dL (0.2-1.0); TOTAL PROTEIN 6.9 g/dL (6.4-8.2)
--- NOTE | 2020-04-16 18:41 | RAD ---
LEFT LOWER EXTREMITY DUPLEX ARTERY ULTRASOUND Indication: Reason: LLE swelling, pain / Spl. Instructions: / History: Comparison: None. Procedure: Real-time grayscale, color flow Doppler, and Doppler spectral waveform analysis of the arterial system of the lower extremity is performed. Findings: There is no arterial occlusion. Normal triphasic waveforms are present in the common femoral artery, profunda artery, and superficial femoral artery. Popliteal artery waveform appears biphasic.Monophasic waveforms are identified in the calf arteries. There is no focal significantly elevated peak systolic velocity. IMPRESSION: No hemodynamically significant stenosis. Electronically signed by: Cash Singleton MD (04/16/2020 6:38 PM) [facility]
[2020-04-16] MEDS ORDERED: HYDR-3164 PO (18:49)
[2020-04-16 19:00] VITALS: BP 104/51
== END 2020-04-16 19:00 | disposition home or self-care (01) ==
LOC: ER 15:08
DX: M79.605 Pain in left leg (principal); R60.0 Localized edema; F41.9 Anxiety disorder, unspecified; F32.9 Major depressive disorder, single episode, unspecified; E11.9 Type 2 diabetes mellitus without complications; K21.9 Gastro-esophageal reflux disease without esophagitis; E78.00 Pure hypercholesterolemia, unspecified; F17.200 Nicotine dependence, unspecified, uncomplicated; Z90.49 Acquired absence of other specified parts of digestive tract; Z90.89 Acquired absence of other organs; Z98.890 Other specified postprocedural states; Z90.710 Acquired absence of both cervix and uterus; Z88.6 Allergy status to analgesic agent; Z88.8 Allergy status to other drugs, medicaments and biological substances; Z86.73 Personal history of transient ischemic attack (TIA), and cerebral infarction without residual deficits
CPT/HCPCS: 36415; 80053; 83605; 85025; 87040; 93926; 96374; 96375; 96376; 99284; J2405; J3010

== ENCOUNTER → 2020-07-23 | Outpatient (CLI) | payer MEDICARE ==
[~2020-07-23] MED LIST changes: +HYDR-3164 PO
--- NOTE | 2020-07-23 16:38 | KCIC ---
EXAM: CHEST PA LATERAL INDICATION: Reason: Dyspnea, SOA, Past smoker, Lung nodules / Spl. Instructions: / History: . TECHNIQUE: PA and lateral views COMPARISON: Abdomen CT 09/12/2019 FINDINGS: The heart size is normal. The great vessels appear unremarkable. There is no hilar or mediastinal mass. The lungs show mild prominence of the central pulmonary vessels and there is a dense nodule opacity in the right lower lobe compatible with a granuloma.. There is no pleural effusion or pneumothorax. There are no significant osseous abnormalities. IMPRESSION: No active cardiopulmonary disease. Electronically signed by: Bonifacio Pickering MD (07/23/2020 4:35 PM) [id number]
== END | disposition home or self-care (01) ==
LOC: KCIC 13:29
PROVIDERS: ATTEND Family Medicine
DX: R91.1 Solitary pulmonary nodule (principal); Z87.891 Personal history of nicotine dependence
CPT/HCPCS: 71046

== ENCOUNTER 2020-08-19 14:31 | Emergency (ER) | payer MEDICARE ==
[~2020-08-19] VITALS: Ht 167.6 cm; Wt 86.3 kg
[2020-08-19 14:40] VITALS: BP 158/76
[2020-08-19] MEDS ORDERED: SULF1TAB24 PO (15:18)
[2020-08-19] MEDS ORDERED: CEPH-264 PO (15:18)
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
== END 2020-08-19 15:41 | disposition home or self-care (01) ==
LOC: ER 14:31
DX: L03.116 Cellulitis of left lower limb (principal); K21.9 Gastro-esophageal reflux disease without esophagitis; E78.00 Pure hypercholesterolemia, unspecified; E11.9 Type 2 diabetes mellitus without complications; I10 Essential (primary) hypertension; G89.29 Other chronic pain; F17.200 Nicotine dependence, unspecified, uncomplicated; Z86.73 Personal history of transient ischemic attack (TIA), and cerebral infarction without residual deficits; E78.5 Hyperlipidemia, unspecified; Z88.1 Allergy status to other antibiotic agents; Z88.5 Allergy status to narcotic agent
CPT/HCPCS: 99284

== ENCOUNTER 2020-09-12 09:03 | Emergency (ER) | payer MEDICARE ==
[~2020-09-12] VITALS: Ht 167.6 cm; Wt 200.0 kg
[~2020-09-12 09:03] MED LIST changes: +CEPH-264 PO; +SERT-268 PO; -SERT100T8 PO; +SULF1TAB24 PO
[2020-09-12 09:52] LABS: BASO % 0 % (0-3); EOS % 0 % (0-3); HEMATOCRIT 32.6 % (36.0-47.0); HEMOGLOBIN 10.5 g/dL (12.0-15.5); LYMPH # 1.5 x10^3/uL (1.0-4.8); LYMPH % 14 % (24-48); MEAN CORPUSCULAR HEMOGLOBIN 26 pg (25-35); MEAN CORPUSCULAR HGB CONC 32 g/dL (31-37); MEAN CORPUSCULAR VOLUME 82 fL (79-100); MONO # 0.4 x10^3/uL (0.0-1.1); MONO % 4 % (0-9); NEUT # 8.5 x10^3/uL (1.8-7.7); NEUT % 82 % (31-73); PLATELET COUNT 316 x10^3/uL (140-400); RED BLOOD COUNT 3.98 x10^6/uL (3.50-5.40); WHITE BLOOD COUNT 10.5 x10^3/uL (4.0-11.0)
[2020-09-12 10:00] VITALS: BP 141/88
[2020-09-12 10:03] LABS: CALCIUM 8.8 mg/dL (8.5-10.1); CREATININE 0.8 mg/dL (0.6-1.0); GFR 71.1; POTASSIUM 3.6 mmol/L (3.5-5.1)
--- NOTE | 2020-09-12 10:03 | RAD ---
Single view chest dated 01/13/2020. Comparison made to 07/23/2020. CLINICAL INDICATION: Shortness of breath. FINDINGS: Single upright portable exam performed. Heart and mediastinal contours are stable. Lungs are somewhat hyperinflated but otherwise clear. No consolidation or pleural effusion. No pneumothorax. IMPRESSION: No acute radiographic abnormality. Electronically signed by: Pancho Veloz MD (09/12/2020 10:00 AM) RASHID
[2020-09-12 10:08] LABS: ALBUMIN 3.3 g/dL (3.4-5.0); ALBUMIN/GLOBULIN RATIO 0.8 (1.0-1.7); MAGNESIUM 2.1 mg/dL (1.8-2.4); TOTAL BILIRUBIN 0.1 mg/dL (0.2-1.0); TOTAL PROTEIN 7.2 g/dL (6.4-8.2)
[2020-09-12 10:09] LABS: PROTHROMBIN TIME PATIENT 12.3 SEC (11.7-14.0)
[2020-09-12 10:21] LABS: D-DIMER 0.43 ug/mlFEU (0.00-0.50)
[2020-09-12] MEDS ORDERED: IOHEXOL 350 MG/ML 100 ML VIAL. IV ONE (10:45)
[2020-09-12] MEDS ORDERED: CONTRAST GIVEN. MC PRN (10:45)
[2020-09-12 11:05] LABS: AMPHETAMINE/METHAMPHETAMINE NEG (NEG); BARBITURATES NEG (NEG); BENZODIAZEPINES NEG (NEG); CANNABINOIDS NEG (NEG); COCAINE NEG (NEG); METHADONE NEG (NEG); OPIATES NEG (NEG); PHENCYCLIDINE NEG (NEG)
[2020-09-12 11:07] LABS: BILIRUBIN,URINE NEGATIVE (NEG); CLARITY,URINE CLEAR; COLOR,URINE YELLOW; NITRITE,URINE NEGATIVE (NEG); PROTEIN,URINE NEGATIVE (NEG-TRACE); UROBILINOGEN,URINE 0.2 mg/dL (0.2 mg/dL)
--- NOTE | 2020-09-12 11:14 | RAD ---
CTA chest with contrast dated 09/12/2020. No comparison available. CLINICAL INDICATION: Chest pain and shortness of breath. TECHNIQUE: Contiguous axial imaging of the chest performed following the intravenous demonstration of 100 cc Omnipaque 350. One or more of the following individualized dose reduction techniques were utilized for this examination: 1. Automated exposure control 2. Adjustment of the mA and/or kV according to patient size 3. Use of iterative reconstruction technique. FINDINGS: Contrast bolus is adequate. No evidence of central, lobar or segmental pulmonary embolus. Subsegmental branches are not well evaluated based on technique. Heart size within normal limits. No pericardial effusion. Coronary artery calcifications. Borderline enlarged pretracheal lymph node measuring 9 mm short axis. Calcified right hilar lymph nodes. No axillary or supraclavicular lymphadenopathy. Thyroid gland is unremarkable. Central airways are patent. Mild emphysema. Mild diffuse bronchial wall thickening. Calcified granuloma right lower lobe. No pleural effusion or pneumothorax. Mild biapical scarring. Limited images of the upper abdomen are unremarkable. Gallbladder surgically absent. Moderate hiatal hernia. Bone windows show no acute findings. Multilevel spondylosis. IMPRESSION: 1. No evidence of central, lobar or segmental pulmonary embolus. 2. Borderline enlarged mediastinal lymph node, nonspecific. 3. Mild diffuse bronchial wall thickening and mild emphysema. 4. Coronary artery calcifications. 5. Hiatal hernia. Electronically signed by: Pancho Veloz MD (09/12/2020 11:11 AM) [facility]
[2020-09-12 11:38] LABS: BACTERIA,URINE 0 /HPF (0-FEW); WBC,URINE 0 /HPF (0-4)
--- NOTE | 2020-09-12 11:46 | PHYS DOC ---
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 Patient states s he coughed so much that her ribs hurt bilaterally. Patient has been evaluated by her family physician multiple times, she is currently on prednisone. Patient states she is not getting any better. Patient stated she did not go anywhere, she stayed home, and went to see her doctor. Patient says she was tested negative for COVID-19 last week. Patient denies any history of coronary disease. Patient denies any abdominal pain, no nausea vomiting. Review of Systems: Review of Systems: Constitutional: Denies fever or chills. [] Eyes: Denies change in visual acuity. [] HENT: Denies nasal congestion or sore throat. [] Respiratory: Positive for cough and shortness of breath. [] Cardiovascular: Denies chest pain or edema. [] GI: Denies abdominal pain, nausea, vomiting, bloody stools or diarrhea. [] : Denies dysuria. [] Musculoskeletal: positive for back pain, joint pain Integument: Denies rash. [] Neurologic: Denies headache, focal weakness or sensory changes. [] Endocrine: Denies polyuria or polydipsia. [] Lymphatic: Denies swollen glands. [] Psychiatric: Denies depression or anxiety. [] Heart Score: Risk Factors: Risk Factors: DM, Current or recent (<one month) smoker, HTN, HLP, family history of CAD, obesity. Risk Scores: Score 0 - 3: 2.5% MACE over next 6 weeks - Discharge Home Score 4 - 6: 20.3% MACE over next 6 weeks - Admit for Clinical Observation Score 7 - 10: 72.7% MACE over next 6 weeks - Early Invasive Strategies Current Medications: Current Medications Medications (Trade) Dose Ordered Sig/Rayshawn Start Time Stop Time Status Last Admin Dose Admin Info (CONTRAST GIVEN -- Rx MONITORING) 1 each PRN DAILY PRN 09/12/20 10:45 09/14/20 10:44 Iohexol (Omnipaque 350 Mg/ml) 100 ml 1X ONCE 09/12/20 10:45 09/12/20 10:46 DC 09/12/20 11:08 100 ML Allergies: Allergies: Allergies Coded Allergies Type Severity Reaction Last Updated Verified meperidine Allergy Intermediate 09/12/20 Yes morphine Allergy Intermediate Hives, itching 09/12/20 Yes Physical Exam: PE: Constitutional: Well developed, well nourished, no acute distress, non-toxic appearance. [] HENT: Normocephalic, atraumatic, bilateral external ears normal, oropharynx moist, no oral exudates, nose normal. [] Eyes: PERRLA, EOMI, conjunctiva normal, no discharge. [] Neck: Normal range of motion, no tenderness, supple, no stridor. [] Cardiovascular:Heart rate regular rhythm, no murmur [] Lungs & Thorax: Bilateral breath sounds clear to auscultation [] Abdomen: Bowel sounds normal, soft, no tenderness, no masses, no pulsatile masses. [] Skin: Warm, dry, no erythema, no rash. [] Back: No tenderness, no CVA tenderness. [] Extremities: No tenderness, no cyanosis, no clubbing, ROM intact, no edema. [] Neurologic: Alert and oriented X 3, normal motor function, normal sensory function, no focal deficits noted. [] Psychologic: Affect normal, judgement normal, mood normal. [] Current Patient Data: Labs: Laboratory Tests Test 09/12/20 09:30 09/12/20 10:45 White Blood Count 10.5 x10^3/uL (4.0-11.0) Red Blood Count 3.98 x10^6/uL (3.50-5.40) Hemoglobin 10.5 g/dL (12.0-15.5) L Hematocrit 32.6 % (36.0-47.0) L Mean Corpuscular Volume 82 fL (79-100) Mean Corpuscular Hemoglobin 26 pg (25-35) Mean Corpuscular Hemoglobin Concent 32 g/dL (31-37) Red Cell Distribution Width 20.0 % (11.5-14.5) H Platelet Count 316 x10^3/uL (140-400) Neutrophils (%) (Auto) 82 % (31-73) H Lymphocytes (%) (Auto) 14 % (24-48) L Monocytes (%) (Auto) 4 % (0-9) Eosinophils (%) (Auto) 0 % (0-3) Basophils (%) (Auto) 0 % (0-3) Neutrophils # (Auto) 8.5 x10^3/uL (1.8-7.7) H Lymphocytes # (Auto) 1.5 x10^3/uL (1.0-4.8) Monocytes # (Auto) 0.4 x10^3/uL (0.0-1.1) Eosinophils # (Auto) 0.0 x10^3/uL (0.0-0.7) Basophils # (Auto) 0.0 x10^3/uL (0.0-0.2) Prothrombin Time 12.3 SEC (11.7-14.0) Prothrombin Time INR 1.0 (0.8-1.1) D-Dimer (Torri) 0.43 ug/mlFEU (0.00-0.50) Sodium Level 139 mmol/L (136-145) Potassium Level 3.6 mmol/L (3.5-5.1) Chloride Level 104 mmol/L (98-107) Carbon Dioxide Level 21 mmol/L (21-32) Anion Gap 14 (6-14) Blood Urea Nitrogen 14 mg/dL (7-20) Creatinine 0.8 mg/dL (0.6-1.0) Estimated GFR (Cockcroft-Gault) 71.1 BUN/Creatinine Ratio 18 (6-20) Glucose Level 140 mg/dL (70-99) H Calcium Level 8.8 mg/dL (8.5-10.1) Magnesium Level 2.1 mg/dL (1.8-2.4) Total Bilirubin 0.1 mg/dL (0.2-1.0) L Aspartate Amino Transferase (AST) 13 U/L (15-37) L Alanine Aminotransferase (ALT) 16 U/L (14-59) Alkaline Phosphatase 105 U/L (46-116) Troponin I Quantitative < 0.017 ng/mL (0.000-0.055) VA-Dut-Y-Type Natriuretic Peptide 233 pg/mL (0-124) H Total Protein 7.2 g/dL (6.4-8.2) Albumin 3.3 g/dL (3.4-5.0) L Albumin/Globulin Ratio 0.8 (1.0-1.7) L Lipase 83 U/L (73-393) Urine Collection Type Unknown Urine Color Yellow Urine Clarity Clear Urine pH 6.0 (<5.0-8.0) Urine Specific [place] 1.020 (1.000-1.030) Urine Protein Negative mg/dL (NEG-TRACE) Urine Glucose (UA) Negative mg/dL (NEG) Urine Ketones (Stick) Negative mg/dL (NEG) Urine Blood Negative (NEG) Urine Nitrite Negative (NEG) Urine Bilirubin Negative (NEG) Urine Urobilinogen Dipstick 0.2 mg/dL (0.2 mg/dL) Urine Leukocyte Esterase Negative (NEG) Urine RBC 1-2 /HPF (0-2) Urine WBC 0 /HPF (0-4) Urine Squamous Epithelial Cells Few /LPF Urine Bacteria 0 /HPF (0-FEW) Urine Mucus Mod /LPF Urine Opiates Screen Neg (NEG) Urine Methadone Screen Neg (NEG) Urine Barbiturates Neg (NEG) Urine Phencyclidine Screen Neg (NEG) Urine Amphetamine/Methamphetamine Neg (NEG) Urine Benzodiazepines Screen Neg (NEG) Urine Cocaine Screen Neg (NEG) Urine Cannabinoids Screen Neg (NEG) Urine Ethyl Alcohol Neg (NEG) Laboratory Tests 09/12/20 09:30 Laboratory Tests 09/12/20 09:30 Vital Signs: Vital Signs Date Time Temp Pulse Resp B/P (MAP) Pulse Ox O2 Delivery O2 Flow Rate FiO2 09/12/20 10:00 76 20 141/88 (105) 98 Room Air 09/12/20 09:15 98.1 98.1 EKG: EKG: EKG was done at 547, heart rate of 81 bpm, sinus rhythm, no ST segment elevation. Radiology/Procedures: Radiology/Procedures: [][facility] [address] [place] [address] IMAGING REPORT Signed PATIENT: CRUZITO BROWN MACCOUNT: [id number] : 1950 LOCATION: ER AGE: 70 SEX: F EXAM STATUS: REG ER ORD. PHYSICIAN: MARJORIE HUFFMAN DO REASON: chest pain, shortness of air PROCEDURE: CT ANGIOGRAPHY CHEST CTA chest with contrast dated 09/12/2020. No comparison available. CLINICAL INDICATION: Chest pain and shortness of breath. TECHNIQUE: Contiguous axial imaging of the chest performed following the intravenous demonstration of 100 cc Omnipaque 350. One or more of the following individualized dose reduction techniques were utilized for this examination: 1. Automated exposure control 2. Adjustment of the mA and/or kV according to patient size 3. Use of iterative reconstruction technique. FINDINGS: Contrast bolus is adequate. No evidence of central, lobar or segmental pulmonary embolus. Subsegmental branches are not well evaluated based on technique. Heart size within normal limits. No pericardial effusion. Coronary artery calcifications. Borderline enlarged pretracheal lymph node measuring 9 mm short axis. Calcified right hilar lymph nodes. No axillary or supraclavicular lymphadenopathy. Thyroid gland is unremarkable. Central airways are patent. Mild emphysema. Mild diffuse bronchial wall thickening. Calcified granuloma right lower lobe. No pleural effusion or pneumothorax. Mild biapical scarring. Limited images of the upper abdomen are unremarkable. Gallbladder surgically absent. Moderate hiatal hernia. Bone windows show no acute findings. Multilevel spondylosis. IMPRESSION: 1. No evidence of central, lobar or segmental pulmonary embolus. 2. Borderline enlarged mediastinal lymph node, nonspecific. 3. Mild diffuse bronchial wall thickening and mild emphysema. 4. Coronary artery calcifications. 5. Hiatal hernia. Electronically signed by: Pancho Veloz MD (09/12/2020 11:11 AM) [facility] [place] DICTATED and SIGNED BY: PANCHO VELOZ MD DATE: 09/12/20 1111 Course & Med Decision Making: Course & Med Decision Making Pertinent Labs and Imaging studies reviewed. (See chart for details) Patient is a 70-year-old female who presented to ER for evaluation of body ache, nonproductive cough and wheezing for almost 2 months. Her EKG was normal, her lab work did not show any acute problem. CT scan of her chest did not show infiltration or pulmonary embolus. Patient will be discharged home, she will need to follow-up with her family physician as needed. Dayo Disclaimer: Dayo Disclaimer: This electronic medical record was generated, in whole or in part, using a voice recognition dictation system. Departure Departure Impression: Primary Impression: Acute bronchitis, viral Disposition: 01 DC HOME SELF CARE/HOMELESS Condition: STABLE Referrals: ELIESER HICKMAN MD (PCP) please follow up with your doctor as needed next week Patient Instructions: Acute Bronchitis Additional Instructions: Thank you for visiting our Emergency Department. We appreciate you trusting us with your care. If any additional problems come up don't hesitate to return to visit us. Please follow up with your primary care provider so they can plan additional care if needed and know about the problem that you had. If symptoms worsen come back to the Emergency Department. Any concerning symptoms that start such as chest pain, shortness of air, weakness or numbness on one side of the body, running high fevers or any other concerning symptoms return to the ER. MARJORIE HUFFMAN DO Sep 12, 2020 11:46
--- NOTE | 2020-09-14 09:01 | EKG ---
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
--- NOTE | 2020-09-14 10:03 | NUR ---
IP: Informed pt of negative COVID test. Pt verbalized understanding.
== END 2020-09-12 11:35 | disposition home or self-care (01) ==
LOC: ER 09:03
DX: J20.8 Acute bronchitis due to other specified organisms (principal); Z20.828 Contact with and (suspected) exposure to other viral communicable diseases; E11.9 Type 2 diabetes mellitus without complications; K21.9 Gastro-esophageal reflux disease without esophagitis; E78.00 Pure hypercholesterolemia, unspecified; G89.29 Other chronic pain; Z86.73 Personal history of transient ischemic attack (TIA), and cerebral infarction without residual deficits; Z87.891 Personal history of nicotine dependence; Z88.1 Allergy status to other antibiotic agents; Z88.5 Allergy status to narcotic agent
CPT/HCPCS: 36415; 71045; 71275; 80053; 80307; 81001; 83690; 83735; 83880; 84484; 85025; 85379; 85610; 93005; 99285; C9803; Q9967; U0003

== ENCOUNTER → 2020-12-13 | Outpatient (CLI) | payer MEDICARE ==
[~2020-12-13] MED LIST changes: -SERT-268 PO; +SERT100T8 PO
--- NOTE | 2020-12-13 17:13 | KCIC ---
PROCEDURE: XR HAND 3 VIEWS STUDY DATE: 12/13/2020 CLINICAL INDICATION / HISTORY: Reason: Polyarthralgia / Spl. Instructions: / History: . TECHNIQUE: PA, lateral and oblique views of the left hand. COMPARISON: None FINDINGS: No fracture or dislocation is identified. The bone density is mildly demineralized, primari ly around the joints. The joint spaces are maintained, and there are no erosions to suggest an inflam matory arthropathy. The soft tissues are unremarkable. IMPRESSION: No acute osseous abnormality. No specific findings to explain polyarthralgia the left canales d. In particular, no findings of inflammatory arthropathy besides subtle juxta-articular osteopenia t hat could be age-related. Correlate with clinical markers for any evidence of inflammation. Electronically signed by: Bonifacio Pickering MD (12/13/2020 5:11 PM) [id number]
== END ==
LOC: KCIC 13:32
PROVIDERS: ATTEND Internal Medicine Rheumatology
DX: M25.542 Pain in joints of left hand (principal); M25.541 Pain in joints of right hand
CPT/HCPCS: 73130

== ENCOUNTER 2021-01-16 07:53 | Inpatient (IN) | payer MEDICARE ==
[~2021-01-16] VITALS: Ht 167.6 cm; Wt 92.0 kg
[~2021-01-16 07:53] MED LIST changes: +SERT-268 PO; -SERT100T8 PO
[2021-01-16] MEDS ORDERED: IV NORMAL SALINE 1000ML BAG 1,000 ML IV ONE (09:00)
[2021-01-16] MEDS ORDERED: diphenhydrAMINE 50 MG/ML VIAL IVP ONE (09:00)
[2021-01-16] MEDS ORDERED: DEXAMETHASONE SOD PHOS 20 MG/5 ML VIAL. IV ONE (09:00)
[2021-01-16] MEDS ORDERED: METOCLOPRAMIDE HCL 10 MG/2 ML VIAL. IVP ONE (09:00)
[2021-01-16] MEDS ORDERED: PROCHLORPERAZINE 10 MG/2 ML VIAL. IV ONE (09:00)
--- NOTE | 2021-01-16 09:02 | PHYS DOC ---
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 Patient states she has tried everything [id number] with no relief. Medications she is taking include Claritin-D, Benadryl, ibuprofen, Tylenol, Zofran and Zantac. Reports this is not the worst headache of her life but is upset it's persisting. No h/o migraines. No alcohol/drug use. Review of Systems: Review of Systems: Constitutional: Denies fever or chills. [] Eyes: Denies change in visual acuity. [] HENT: Denies nasal congestion or sore throat. [] Respiratory: Denies cough or shortness of breath. [] Cardiovascular: Denies chest pain or edema. [] GI: Denies abdominal pain, nausea, vomiting, bloody stools or diarrhea. [] : Denies dysuria. [] Musculoskeletal: Denies back pain or joint pain. [] Integument: Denies rash. [] Neurologic: Denies headache, focal weakness or sensory changes. [] Endocrine: Denies polyuria or polydipsia. [] Lymphatic: Denies swollen glands. [] Psychiatric: Denies depression or anxiety. [] Heart Score: Risk Factors: Risk Factors: DM, Current or recent (<one month) smoker, HTN, HLP, family history of CAD, obesity. Risk Scores: Score 0 - 3: 2.5% MACE over next 6 weeks - Discharge Home Score 4 - 6: 20.3% MACE over next 6 weeks - Admit for Clinical Observation Score 7 - 10: 72.7% MACE over next 6 weeks - Early Invasive Strategies Current Medications: Current Medications Medications (Trade) Dose Ordered Sig/Rayshawn Start Time Stop Time Status Last Admin Dose Admin Dexamethasone Sodium Phosphate (Decadron) 10 mg 1X ONCE 01/16/21 09:00 01/16/21 09:01 Diphenhydramine HCl (Benadryl) 25 mg 1X ONCE 01/16/21 09:00 01/16/21 09:01 Metoclopramide HCl (Reglan Vial) 10 mg 1X ONCE 01/16/21 09:00 01/16/21 09:01 Prochlorperazine Edisylate (Compazine) 10 mg 1X ONCE 01/16/21 09:00 01/16/21 09:01 Sodium Chloride 1,000 ml @ 1,000 mls/hr 1X ONCE 01/16/21 09:00 01/16/21 09:59 Allergies: Allergies: Allergies Coded Allergies Type Severity Reaction Last Updated Verified meperidine Allergy Intermediate 09/12/20 Yes morphine Allergy Intermediate Hives, itching 09/12/20 Yes Physical Exam: PE: Constitutional: Well developed, well nourished, no acute distress, non-toxic appearance. HENT: Normocephalic, atraumatic, Eyes: EOMI, conjunctiva normal, no discharge. Neck: Normal range of motion, supple, Cardiovascular: S1/2 present, tachycardic Lungs & Thorax: Speaking in full sentences, bilateral equal chest rise, no tachypnea or increased work of breathing, no wheezing/rales/crackles, clear lungs bilaterally, saturating mid 80s on room air Abdomen: soft, no tenderness, Skin: Warm, dry, no erythema, no rash. [] Back: No tenderness, no CVA tenderness. [] Extremities: No tenderness, no cyanosis, no unilateral lower extremity edema Neurologic: Alert and oriented X 3, normal motor function, normal sensory function, no focal deficits noted. [] Psychologic: Affect normal, judgement normal, mood normal. [] Current Patient Data: Vital Signs: Vital Signs Date Time Temp Pulse Resp B/P (MAP) Pulse Ox O2 Delivery O2 Flow Rate FiO2 01/16/21 08:19 98.2 113 20 139/79 (99) 93 Room Air 98.2 EKG: EKG: [] Radiology/Procedures: Radiology/Procedures: IMAGING REPORT Signed PATIENT: CRUZITO BROWNCOUNT: [id number] : 1950 LOCATION: ER AGE: 70 SEX: F EXAM STATUS: REG ER ORD. PHYSICIAN: HEBERT MUÑIZ DO REASON: hypoxia PROCEDURE: CHEST AP ONLY Chest AP portable 01/16/2021. Reason for exam: Hypoxia. Comparison is made with a study of 09/12/2020. No infiltrate is seen. There may be a small amount of pleural fluid bilaterally. Heart size and pulmonary vascularity appear normal. IMPRESSION: No acute infiltrate. Possible trace pleural effusions. Electronically signed by: Santy Jewell Jr., MD (01/16/2021 10:02 AM) [facility] DICTATED and SIGNED BY: SANTY JEWELL Jr, MD DATE: 01/16/21 [id number] IMAGING REPORT Signed PATIENT: CRUZITO BROWNCOUNT: [id number] : 1950 LOCATION: ER AGE: 70 SEX: F EXAM STATUS: REG ER ORD. PHYSICIAN: HEBERT MUÑIZ DO REASON: headache PROCEDURE: CT HEAD WO CONTRAST CT HEAD/BRAIN WO Date: 01/16/2021 9:46 AM Clinical Indication: headache Comparison: MRI 03/19/2020. Technique: 5 mm axial tomographic images were obtained of the head without contrast. These were viewed on brain and bone windows. One or more of the following dose reduction techniques were utilized: Automated exposure control (AEC), Adjustment of mA and/or kV according to patient size, Use of iterative reconstruction technique such as ASiR, CT scan done according to ALARA and image gently/image wisely Findings: The brain parenchyma is normal in attenuation. No intra- or extra-axial mass or fluid collection. No acute hemorrhage. The ventricles are normal in size, shape, and morphology. The alcaraz-white matter junction is normal. The subarachnoid cisterns are patent. The visualized paranasal sinuses are normal. The visualized portions of the orbits and globes are normal. The mastoid air cells are clear. The pilot submersible topogram shows no lytic lesion or fracture. Impression: No acute intracranial process. Electronically signed by: Marcio Gutierrez MD (01/16/2021 10:05 AM) [id number] DICTATED and SIGNED BY: MARCIO GUTIERREZ MD DATE: 01/16/21 [id number] 0 IMAGING REPORT Signed PATIENT: CRUZITO BROWNCOUNT: [id number] : 1950 LOCATION: ER AGE: 70 SEX: F EXAM STATUS: REG ER ORD. PHYSICIAN: HEBERT MUÑIZ DO REASON: SOA, R/O PE PROCEDURE: CT ANGIOGRAPHY CHEST CTA CHEST INDICATION: SOA, R/O PE Comparison: None. TECHNIQUE: Following the uneventful administration of intravenous contrast, 100 cc Omnipaque 350, axial CT sections were obtained through the lungs and upper abdomen. Multiplanar reconstructions and MIP images were obtained. PQRS compliance statement: One or more of the following individualized dose reduction techniques were utilized for this examination: 1. Automated exposure control 2. Adjustment of the mA and/or kV according to patient size 3. Use of iterative reconstruction technique FINDINGS: Pulmonary arteries: No evidence of pulmonary thromboembolic disease. Lungs and Airways: No pulmonary mass or consolidation. Right lower lobe nodule with benign pattern central calcification. No abnormality of the central airways. Pleura: The pleural spaces are normal. Heart and Mediastinum: The visualized thyroid is normal in size and attenuation. No axillary or supraclavicular lymphadenopathy. No mediastinal, hilar or retrocrural lymphadenopathy. Normal cardiac size. No pericardial effusion. Coronary artery atherosclerotic disease. Atherosclerosis of the thoracic aorta. Moderate-sized hiatal hernia. Abdomen: Cholecystectomy. Bones and Soft Tissues: Degenerative changes of the spine. IMPRESSION: 1. No evidence of pulmonary thromboembolic disease. 2. No pulmonary mass or consolidation. Electronically signed by: Marcio Gutierrez MD (01/16/2021 2:26 PM) [id number] DICTATED and SIGNED BY: MARCIO GUTIERREZ MD DATE: 01/16/21 [id number] 0 Course & Med Decision Making: Course & Med Decision Making Pertinent Labs and Imaging studies reviewed. (See chart for details) COVID-19 CRITERIA: The patient was evaluated during the global COVID-19 pandemic, and that diagnosis was suspected/considered upon their initial pres entation. Their evaluation, treatment and testing was consistent with current guidelines for patients who present with complaints or symptoms that may be related to COVID-19. Patient presented to headache which fully resolved in the ED. Incidental finding on monitor -patient saturating in the 80s with no supplemental oxygen. Is requiring 2 L to maintain 92%. Chest x-ray with questionable bilateral pleural effusions. Reports history of cough back in July and since then has been complaining of extreme fatigue, lethargy and exertional shortness of breath, states "I thought I was just getting older but ever since I had that cough I'm not as strong as I use to be." CTA chest showed no thromboembolic disease. Pt still requiring oxygen (drops below 90% on RA). Hypoxia from covid? Pulm HTN/CHF? Will admit for further medical management including echo, cardiology consultation. Patient stable time of admission and agrees with this plan. I have spoken with the patient and/or caregivers. I have explained the patient's condition, diagnosis and treatment plan based on the information available to me at this time. I have answered the patient's and/or caregivers questions and answered any concerns. The patient and/or caregivers have as good an understanding of the patient's diagnosis, condition and treatment plan as can be expected at this point. The patient has been stabilized within the capability of the emergency department. The patient will be transported for further care and management or will be moved to an observation or inpatient service. I have communicated with the staff or medical practitioner taking over this patient's care. Dayo Disclaimer: Dayo Disclaimer: This electronic medical record was generated, in whole or in part, using a voice recognition dictation system. Departure Departure Impression: Primary Impression: Person under investigation for COVID-19 Additional Impressions: Hypoxia Pleural effusion on left Pleural effusion on right Disposition: ADMITTED INPT THIS HOSP Admitting Physician: BLAISE (Dr. Briones) Condition: STABLE Referrals: ELIESER HICKMAN MD (PCP) HEBERT MUÑIZ DO Jan 16, 2021 09:02
[2021-01-16 09:18] LABS: BASO # 0.1 x10^3/uL (0.0-0.2); BASO % 1 % (0-3); EOS # 0.3 x10^3/uL (0.0-0.7); EOS % 2 % (0-3); HEMATOCRIT 37.5 % (36.0-47.0); HEMOGLOBIN 12.2 g/dL (12.0-15.5); LYMPH # 1.5 x10^3/uL (1.0-4.8); LYMPH % 13 % (24-48); MEAN CORPUSCULAR HEMOGLOBIN 28 pg (25-35); MEAN CORPUSCULAR HGB CONC 33 g/dL (31-37); MEAN CORPUSCULAR VOLUME 87 fL (79-100); MONO # 0.6 x10^3/uL (0.0-1.1); MONO % 5 % (0-9); NEUT # 9.3 x10^3/uL (1.8-7.7); NEUT % 79 % (31-73); PLATELET COUNT 270 x10^3/uL (140-400); RED BLOOD COUNT 4.33 x10^6/uL (3.50-5.40); RED CELL DISTRIBUTION WIDTH 18.3 % (11.5-14.5); WHITE BLOOD COUNT 11.8 x10^3/uL (4.0-11.0)
[2021-01-16 09:27] LABS: CALCIUM 8.3 mg/dL (8.5-10.1); CREATININE 0.7 mg/dL (0.6-1.0); POTASSIUM 3.7 mmol/L (3.5-5.1)
[2021-01-16 09:33] LABS: PROTHROMBIN TIME PATIENT 12.4 SEC (11.7-14.0)
--- NOTE | 2021-01-16 10:04 | RAD ---
Chest AP portable 01/16/2021. Reason for exam: Hypoxia. Comparison is made with a study of 09/12/2020. No infiltrate is seen. There may be a small amount of pleural fluid bilaterally. Heart size and pulmo nary vascularity appear normal. IMPRESSION: No acute infiltrate. Possible trace pleural effusions. Electronically signed by: Shakir Jewell Jr., MD (01/16/2021 10:02 AM) [facility]
--- NOTE | 2021-01-16 10:07 | RAD ---
CT HEAD/BRAIN WO Date: 01/16/2021 9:46 AM Clinical Indication: headache Comparison: MRI 03/19/2020. Technique: 5 mm axial tomographic images were obtained of the head without contrast. These were view ed on brain and bone windows. One or more of the following dose reduction techniques were utilized: A utomated exposure control (AEC), Adjustment of mA and/or kV according to patient size, Use of iterati ve reconstruction technique such as ASiR, CT scan done according to ALARA and image gently/image wiley ly Findings: The brain parenchyma is normal in attenuation. No intra- or extra-axial mass or fluid collection. No acute hemorrhage. The ventricles are normal in size, shape, and morphology. The alcaraz-white matter larisa ction is normal. The subarachnoid cisterns are patent. The visualized paranasal sinuses are normal. The visualized portions of the orbits and globes are no rmal. The mastoid air cells are clear. The suspension cord tier topogram shows no lytic lesion or fracture. Impression: No acute intracranial process. Electronically signed by: Kervin Gutierrez MD (01/16/2021 10:05 AM) [id number]
[2021-01-16 12:41] VITALS: BP 142/78
[2021-01-16] MEDS ORDERED: ONDANSETRON PF 4 MG/2 ML VIAL. IV PRN (13:30)
[2021-01-16] MEDS ORDERED: ACETAMINOPHEN 325 MG TABLET. PO PRN (13:30)
[2021-01-16] MEDS ORDERED: CONTRAST GIVEN. MC PRN (13:45)
[2021-01-16] MEDS ORDERED: IOHEXOL 350 MG/ML 100 ML VIAL. IV ONE (13:45)
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
--- NOTE | 2021-01-16 14:29 | RAD ---
CTA CHEST INDICATION: SOA, R/O PE Comparison: None. TECHNIQUE: Following the uneventful administration of intravenous contrast, 100 cc Omnipaque 350, axi al CT sections were obtained through the lungs and upper abdomen. Multiplanar reconstructions and MIP images were obtained. PQRS compliance statement: One or more of the following individualized dose reduction techniques were utilized for this examinat ion: 1. Automated exposure control 2. Adjustment of the mA and/or kV according to patient size 3. Use of iterative reconstruction technique FINDINGS: Pulmonary arteries: No evidence of pulmonary thromboembolic disease. Lungs and Airways: No pulmonary mass or consolidation. Right lower lobe nodule with benign pattern ce ntral calcification. No abnormality of the central airways. Pleura: The pleural spaces are normal. Heart and Mediastinum: The visualized thyroid is normal in size and attenuation. No axillary or supra clavicular lymphadenopathy. No mediastinal, hilar or retrocrural lymphadenopathy. Normal cardiac size . No pericardial effusion. Coronary artery atherosclerotic disease. Atherosclerosis of the thoracic a oliver. Moderate-sized hiatal hernia. Abdomen: Cholecystectomy. Bones and Soft Tissues: Degenerative changes of the spine. IMPRESSION: 1. No evidence of pulmonary thromboembolic disease. 2. No pulmonary mass or consolidation. Electronically signed by: Kervin Gutierrez MD (01/16/2021 2:26 PM) [id number]
== END 2021-01-16 15:12 | disposition left against medical advice (07) | DRG 894 ==
LOC: ER 07:53 → ED HOLD 13:00
PROVIDERS: ADMIT Internal Medicine; ATTEND Internal Medicine
DX: F11.23 Opioid dependence with withdrawal (principal); J90 Pleural effusion, not elsewhere classified; J43.9 Emphysema, unspecified; R51.9 Headache, unspecified; R09.02 Hypoxemia; E78.5 Hyperlipidemia, unspecified; Z20.822 Contact with and (suspected) exposure to COVID-19; Z79.82 Long term (current) use of aspirin; Z82.49 Family history of ischemic heart disease and other diseases of the circulatory system; Z86.73 Personal history of transient ischemic attack (TIA), and cerebral infarction without residual deficits; Z87.891 Personal history of nicotine dependence; G89.29 Other chronic pain; Z88.8 Allergy status to other drugs, medicaments and biological substances; Z53.29 Procedure and treatment not carried out because of patient's decision for other reasons
CPT/HCPCS: 36415; 70450; 71045; 71275; 80048; 85025; 85610; 85730; 96361; 96374; 96375; J0780; J1100; J1200; J2765; J7030; Q9967; 99285-25

== ENCOUNTER 2021-05-04 02:19 | Emergency (ER) | payer MEDICARE ==
[~2021-05-04] VITALS: Ht 167.6 cm; Wt 95.5 kg
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
--- NOTE | 2021-05-04 03:41 | RAD ---
Chest AP portable at 0300: Reason for examination: Fatigue. Comparison is made to previous study dated 01/16/2021. The heart size is upper normal. Mediastinum is unremarkable. Lung luke show some mild elevation of the right hemidiaphragm which is slightly greater than previous exam. No acute congestion or infiltra yimi are seen. No acute bony abnormalities are seen. Impression: Mild elevation of the right hemidiaphragm. No other acute cardiopulmonary disease. Electronically signed by: Kailey Carrillo MD (05/04/2021 3:38 AM) PILY
[2021-05-04 04:19] LABS: BASO # 0.1 x10^3/uL (0.0-0.2); BASO % 1 % (0-3); EOS # 0.1 x10^3/uL (0.0-0.7); EOS % 2 % (0-3); HEMATOCRIT 34.7 % (36.0-47.0); HEMOGLOBIN 11.4 g/dL (12.0-15.5); LYMPH # 1.7 x10^3/uL (1.0-4.8); LYMPH % 18 % (24-48); MEAN CORPUSCULAR HEMOGLOBIN 29 pg (25-35); MEAN CORPUSCULAR HGB CONC 33 g/dL (31-37); MEAN CORPUSCULAR VOLUME 89 fL (79-100); MONO # 0.6 x10^3/uL (0.0-1.1); MONO % 7 % (0-9); NEUT # 7.3 x10^3/uL (1.8-7.7); NEUT % 74 % (31-73); PLATELET COUNT 271 x10^3/uL (140-400); RED BLOOD COUNT 3.91 x10^6/uL (3.50-5.40); RED CELL DISTRIBUTION WIDTH 18.1 % (11.5-14.5); WHITE BLOOD COUNT 9.9 x10^3/uL (4.0-11.0)
[2021-05-04 04:29] LABS: CALCIUM 8.7 mg/dL (8.5-10.1); CREATININE 0.7 mg/dL (0.6-1.0); GFR 82.7
[2021-05-04 04:37] LABS: ALBUMIN 3.4 g/dL (3.4-5.0); TOTAL BILIRUBIN 0.2 mg/dL (0.2-1.0); TOTAL PROTEIN 6.9 g/dL (6.4-8.2)
[2021-05-04 05:36] VITALS: BP 132/63
--- NOTE | 2021-05-04 05:45 | EKG ---
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
--- NOTE | 2021-05-04 05:46 | EKG ---
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
== END 2021-05-04 05:44 | disposition home or self-care (01) ==
LOC: ER 02:19
DX: R25.1 Tremor, unspecified (principal); F41.9 Anxiety disorder, unspecified; R06.02 Shortness of breath; R53.83 Other fatigue; G89.29 Other chronic pain; Z87.891 Personal history of nicotine dependence; Z88.1 Allergy status to other antibiotic agents; Z88.5 Allergy status to narcotic agent
CPT/HCPCS: 36415; 71045; 80053; 83735; 83880; 84484; 85025; 85379; 93005; 99285; G0480

== ENCOUNTER → 2021-10-20 | Outpatient (CLI) | payer MEDICARE ==
[~2021-10-20] MED LIST changes: +CONTRAST GIVEN. MC PRN; +DICY20TA PO; -DICY20TA3 PO; -DULO60CA6 PO; +DULO60CA7 PO
[2021-10-20] MEDS: IOHEXOL 240 MG/ML 50ML VIAL. PO ONE (13:15)
[2021-10-20] MEDS: IOHEXOL 300 MG/ML 100ML VIAL. IV ONE (13:15)
[2021-10-20 13:38] LABS: CREATININE 0.8 mg/dL (0.6-1.0); GFR 70.9
--- NOTE | 2021-10-20 17:13 | RAD ---
CT abdomen pelvis with contrast dated 10/20/2021. COMPARISON: None. CLINICAL INDICATION: Abdominal pain. TECHNIQUE: Contiguous axial imaging the abdomen pelvis performed following each venous administration of 75 cc O mnipaque 300. One or more of the following individualized dose reduction techniques were utilized for this examinat ion: 1. Automated exposure control 2. Adjustment of the mA and/or kV according to patient size 3. Use of iterative reconstruction technique. FINDINGS: Limited images of lung bases are clear. Heart size is within normal limits. No pleural or pericardial effusion. Moderate-sized hiatal hernia. Liver, spleen, pancreas, adrenal glands and kidneys are unremarkable. No hydronephrosis. There is a l ow-density focus at the upper pole right kidney, most consistent with cysts. The gallbladder is surgi bethany absent. Partially opacified GI tract normal in caliber and contour. No bowel wall thickening. No inflammatory stranding in the mesentery. No ascites or lymphadenopathy. Abdominal aorta normal in caliber. Small umbilical hernia containing only fat. Images of the pelvis show nondistended urinary bladder. Uterus is surgically absent. No free fluid or lymphadenopathy. Small bilateral inguinal hernia containing only fat. Bone windows show no acute findings. Postsurgical changes of the proximal left femur. Spondylotic lorraine nges of the lumbar spine. IMPRESSION: 1. No acute abnormality of abdomen or pelvis. 2. Status post cholecystectomy and hysterectomy. 3. Hiatal hernia. Electronically signed by: Pancho Veloz MD (10/20/2021 5:10 PM) [id number]
== END ==
LOC: CT 13:07
PROVIDERS: ATTEND Physician Assistant
DX: K44.9 Diaphragmatic hernia without obstruction or gangrene (principal); K42.9 Umbilical hernia without obstruction or gangrene; K40.90 Unilateral inguinal hernia, without obstruction or gangrene, not specified as recurrent; M47.816 Spondylosis without myelopathy or radiculopathy, lumbar region; Z90.49 Acquired absence of other specified parts of digestive tract; Z90.710 Acquired absence of both cervix and uterus
CPT/HCPCS: 36415; 74177; 82565; Q9966; Q9967

== ENCOUNTER 2021-11-03 16:31 | Emergency (ER) | payer MEDICARE ==
[~2021-11-03] VITALS: Ht 167.6 cm; Wt 92.0 kg
[~2021-11-03 16:31] MED LIST changes: -CONTRAST GIVEN. MC PRN
[2021-11-03 18:54] LABS: BASO # 0.1 x10^3/uL (0.0-0.2); BASO % 1 % (0-3); EOS # 0.2 x10^3/uL (0.0-0.7); EOS % 2 % (0-3); HEMATOCRIT 38.3 % (36.0-47.0); HEMOGLOBIN 12.3 g/dL (12.0-15.5); LYMPH # 2.4 x10^3/uL (1.0-4.8); LYMPH % 21 % (24-48); MEAN CORPUSCULAR HEMOGLOBIN 28 pg (25-35); MEAN CORPUSCULAR HGB CONC 32 g/dL (31-37); MEAN CORPUSCULAR VOLUME 86 fL (79-100); MONO # 0.7 x10^3/uL (0.0-1.1); MONO % 6 % (0-9); NEUT % 71 % (31-73); PLATELET COUNT 312 x10^3/uL (140-400); RED BLOOD COUNT 4.45 x10^6/uL (3.50-5.40); RED CELL DISTRIBUTION WIDTH 18.8 % (11.5-14.5); WHITE BLOOD COUNT 11.3 x10^3/uL (4.0-11.0)
[2021-11-03 19:04] LABS: CALCIUM 8.3 mg/dL (8.5-10.1); CREATININE 0.7 mg/dL (0.6-1.0); GFR 82.7; POTASSIUM 4.1 mmol/L (3.5-5.1)
[2021-11-03 19:12] LABS: ALBUMIN 3.4 g/dL (3.4-5.0); ALBUMIN/GLOBULIN RATIO 0.9 (1.0-1.7); TOTAL BILIRUBIN 0.2 mg/dL (0.2-1.0); TOTAL PROTEIN 7.3 g/dL (6.4-8.2)
[2021-11-03] MEDS ORDERED: IOHEXOL 300 MG/ML 100ML VIAL. IV ONE (19:15)
[2021-11-03] MEDS ORDERED: CONTRAST GIVEN. MC PRN (19:15)
--- NOTE | 2021-11-03 19:37 | RAD ---
CT OF THE ABDOMEN AND PELVIS WITH IV CONTRAST. History: Reason: Low abdomen pain, no bowel movement for 11 days / Spl. Instructions: [id number] [phone] / History: Comparison:October 20, 2021. Procedure: Contiguous axial images of the abdomen and pelvis were performed after the administration of 75 cc o f Isovue 370 IV contrast. Oral contrast: No. Findings: The common bile duct is dilated to 1.5 cm pelvis no stones seen. There has been prior cholecystectomy . The appendix is not seen. There is a small fat-containing umbilical hernia. There is a small hiatal hernia. There is hardware in the left femur. Liver: Unremarkable Spleen: Unremarkable Pancreas: Unremarkable Adrenal Glands: Unremarkable Kidneys: Cyst in the upper pole of the right kidney There is no mass or lymphadenopathy. There is no free air. There is no free fluid. The urinary bladder appears normal. Impression: 1. Dilated common bile duct seen previously likely chronic. 2. No acute findings. End Impression PQRS Compliance Statement: One or more of the following individualized dose reduction techniques were utilized for this examinat ion: 1. Automated exposure control 2. Adjustment of the mA and/or kV according to patient size 3. Use of iterative reconstruction technique Electronically signed by: Regis Wesley III, MD (11/03/2021 7:35 PM) [facility]
--- NOTE | 2021-11-03 20:24 | PHYS DOC ---
Past Medical History Additional Past Medical Histor: Chronic low back pain (tx: [facility]) Past Surgical History: Other Additional Past Surgical Histo: JORGE RIVERA 1979 (multiple surgeries to LLE) Smoking Status: Unknown if ever smoked Alcohol Use: None Drug Use: None General Adult EDM: Chief Complaint: CONSTIPATION HPI: HPI: Patient is a 71-year-old female presents to the emergency department complaining of no bowel movement for the past 1-1/2 weeks. Patient reports mild discomfort below her bellybutton area. Patient denies nausea, vomiting, diarrhea. Patient denies chest pains or shortness of breath, denies recent fever or chills. Patient reports she has seen her primary care physician Dr. Elieser Hickman who has tried fleets enemas, magnesium citrate, Colace, and Linzess over the past week and a half. Patient states she cannot take it anymore and needs some help to poop today. Patient reports a past medical history of type 2 diabetes, anxiety and depression. Reports a 1-2 out of 10 pain to her lower abdomen. Denies increased urinary frequency, burning with urination, dysuria, or urinary pressure, denies vaginal discharge, denies rashes or lesions to her vagina, denies STI concerns. Denies other physical complaints or physical concerns. Review of Systems: Review of Systems: 14 body systems of review of systems have been reviewed. See HPI for pertinent positives and negative responses, otherwise all other systems are negative, nonpertinent or noncontributory. Constitutional: Negative except as outlined in HPI above. Skin: Negative except as outlined in HPI above. Eyes: Negative except as outlined in HPI above. HENT: Negative except as outlined in HPI above. Respiratory: Negative except as outlined in HPI above. Cardiovascular: Negative except as outlined in HPI above. GI: Negative except as outlined in HPI above. : Negative except as outlined in HPI above. Musculoskeletal: Negative except as outlined in HPI above. Integument: Negative except as outlined in HPI above. Neurologic: Negative except as outlined in HPI above. Endocrine: Negative except as outlined in HPI above. Lymphatic: Negative except as outlined in HPI above. Psychiatric: Negative except as outlined in HPI above. Heart Score: C/O Chest Pain: No Risk Factors: Risk Factors: DM, Current or recent (<one month) smoker, HTN, HLP, family history of CAD, obesity. Risk Scores: Score 0 - 3: 2.5% MACE over next 6 weeks - Discharge Home Score 4 - 6: 20.3% MACE over next 6 weeks - Admit for Clinical Observation Score 7 - 10: 72.7% MACE over next 6 weeks - Early Invasive Strategies Current Medications: Current Medications Medications (Trade) Dose Ordered Sig/Rayshawn Start Time Stop Time Status Last Admin Dose Admin Info (CONTRAST GIVEN -- Rx MONITORING) 1 each PRN DAILY PRN 11/03/21 19:15 11/05/21 19:14 Iohexol (Omnipaque 300 Mg/ml) 75 ml 1X ONCE 11/03/21 19:15 11/03/21 19:16 DC 11/03/21 19:21 75 ML Allergies: Allergies: Allergies Coded Allergies Type Severity Reaction Last Updated Verified meperidine Allergy Intermediate 11/03/21 Yes morphine Allergy Intermediate Hives, itching 11/03/21 Yes Physical Exam: PE: Constitutional: Well developed, well nourished, no acute distress, non-toxic appearance. 71-year-old female in no apparent distress. HENT: Normocephalic, atraumatic. Eyes: Conjunctiva normal, no discharge. Neck: Normal range of motion, no stridor. Cardiovascular: No cyanosis appreciated, distal cap refill less than 2 seconds. Lungs & Thorax: Patient is in no respiratory distress, no audible adventitious lung sounds appreciated. Abdomen: Nontender, no abnormalities noted. Mild pain with palpation at suprapu bic area, no McBurney's point tenderness, no psoas sign, no rebound tenderness, no Garcia sign appreciated. No discoloration of the abdomen appreciated. Skin: Warm, dry, no erythema, no rash. Back: No tenderness, no deformities. Extremities: No tenderness, no cyanosis, no clubbing, ROM intact, no edema. Neurologic: Alert and oriented X 3, normal motor function, normal sensory function, no focal deficits noted. Psychologic: Affect normal, judgement normal, mood normal. Current Patient Data: Labs: Laboratory Tests Test 11/03/21 18:49 11/03/21 20:33 White Blood Count 11.3 x10^3/uL Red Blood Count 4.45 x10^6/uL Hemoglobin 12.3 g/dL Hematocrit 38.3 % Mean Corpuscular Volume 86 fL Mean Corpuscular Hemoglobin 28 pg Mean Corpuscular Hemoglobin Concent 32 g/dL Red Cell Distribution Width 18.8 % Platelet Count 312 x10^3/uL Neutrophils (%) (Auto) 71 % Lymphocytes (%) (Auto) 21 % Monocytes (%) (Auto) 6 % Eosinophils (%) (Auto) 2 % Basophils (%) (Auto) 1 % Neutrophils # (Auto) 8.0 x10^3/uL Lymphocytes # (Auto) 2.4 x10^3/uL Monocytes # (Auto) 0.7 x10^3/uL Eosinophils # (Auto) 0.2 x10^3/uL Basophils # (Auto) 0.1 x10^3/uL Sodium Level 136 mmol/L Potassium Level 4.1 mmol/L Chloride Level 102 mmol/L Carbon Dioxide Level 29 mmol/L Anion Gap 5 Blood Urea Nitrogen 11 mg/dL Creatinine 0.7 mg/dL Estimated GFR (Cockcroft-Gault) 82.7 BUN/Creatinine Ratio 16 Glucose Level 105 mg/dL Calcium Level 8.3 mg/dL Total Bilirubin 0.2 mg/dL Aspartate Amino Transf (AST/SGOT) 12 U/L Alanine Aminotransferase (ALT/SGPT) 15 U/L Alkaline Phosphatase 117 U/L Total Protein 7.3 g/dL Albumin 3.4 g/dL Albumin/Globulin Ratio 0.9 Lipase 45 U/L Urine Collection Type Unknown Urine Color Yellow Urine Clarity Clear Urine pH 8.5 Urine Specific Storden >=1.030 Urine Protein 30 mg/dL Urine Glucose (UA) Negative mg/dL Urine Ketones (Stick) Negative mg/dL Urine Blood Negative Urine Nitrite Negative Urine Bilirubin Negative Urine Urobilinogen Dipstick 1.0 mg/dL Urine Leukocyte Esterase Negative Urine RBC 0 /HPF Urine WBC Occ /HPF Urine Squamous Epithelial Cells Mod /LPF Urine Bacteria 0 /HPF Urine Mucus Slight /LPF Current Medications Medications (Trade) Dose Ordered Sig/Rayshawn Route PRN Reason Start Time Stop Time Status Last Admin Dose Admin Iohexol (Omnipaque 300 Mg/ml) 75 ml 1X ONCE IV 11/03/21 19:15 11/03/21 19:16 DC 11/03/21 19:21 Info (CONTRAST GIVEN -- Rx MONITORING) 1 each PRN DAILY PRN MC SEE COMMENTS 11/03/21 19:15 12/18/21 19:14 Polyethylene Glycol (miraLAX PACKET) 17 gm 1X ONCE PO 11/03/21 21:15 11/03/21 21:16 UNV Ketorolac Tromethamine (Toradol 30mg Vial) 30 mg 1X ONCE IM 11/03/21 21:15 11/03/21 21:16 UNV Laboratory Tests Test 11/03/21 18:49 White Blood Count 11.3 x10^3/uL (4.0-11.0) H Red Blood Count 4.45 x10^6/uL (3.50-5.40) Hemoglobin 12.3 g/dL (12.0-15.5) Hematocrit 38.3 % (36.0-47.0) Mean Corpuscular Volume 86 fL (79-100) Mean Corpuscular Hemoglobin 28 pg (25-35) Mean Corpuscular Hemoglobin Concent 32 g/dL (31-37) Red Cell Distribution Width 18.8 % (11.5-14.5) H Platelet Count 312 x10^3/uL (140-400) Neutrophils (%) (Auto) 71 % (31-73) Lymphocytes (%) (Auto) 21 % (24-48) L Monocytes (%) (Auto) 6 % (0-9) Eosinophils (%) (Auto) 2 % (0-3) Basophils (%) (Auto) 1 % (0-3) Neutrophils # (Auto) 8.0 x10^3/uL (1.8-7.7) H Lymphocytes # (Auto) 2.4 x10^3/uL (1.0-4.8) Monocytes # (Auto) 0.7 x10^3/uL (0.0-1.1) Eosinophils # (Auto) 0.2 x10^3/uL (0.0-0.7) Basophils # (Auto) 0.1 x10^3/uL (0.0-0.2) Sodium Level 136 mmol/L (136-145) Potassium Level 4.1 mmol/L (3.5-5.1) Chloride Level 102 mmol/L (98-107) Carbon Dioxide Level 29 mmol/L (21-32) Anion Gap 5 (6-14) L Blood Urea Nitrogen 11 mg/dL (7-20) Creatinine 0.7 mg/dL (0.6-1.0) Estimated GFR (Cockcroft-Gault) 82.7 BUN/Creatinine Ratio 16 (6-20) Glucose Level 105 mg/dL (70-99) H Calcium Level 8.3 mg/dL (8.5-10.1) L Total Bilirubin 0.2 mg/dL (0.2-1.0) Aspartate Amino Transferase (AST) 12 U/L (15-37) L Alanine Aminotransferase (ALT) 15 U/L (14-59) Alkaline Phosphatase 117 U/L (46-116) H Total Protein 7.3 g/dL (6.4-8.2) Albumin 3.4 g/dL (3.4-5.0) Albumin/Globulin Ratio 0.9 (1.0-1.7) L Lipase 45 U/L (73-393) L Laboratory Tests 11/03/21 18:49 Laboratory Tests 11/03/21 18:49 Vital Signs: Vital Signs Date Time Temp Pulse Resp B/P (MAP) Pulse Ox O2 Delivery O2 Flow Rate FiO2 11/03/21 19:00 62 16 107/53 (71) 94 Room Air 11/03/21 18:41 98.0 98.0 EKG: EKG: [] Radiology/Procedures: Radiology/Procedures: STATUS: REG ER ORD. PHYSICIAN: MIREYA HELTON APRN REASON: Low abdomen pain, no bowel movement for 11 days PROCEDURE: CT ABD PELV W/ IV CONTRST ONLY CT OF THE ABDOMEN AND PELVIS WITH IV CONTRAST. History: Reason: Low abdomen pain, no bowel movement for 11 days / Spl. Instructions: [id number] [phone] / History: Comparison:October 20, 2021. Procedure: Contiguous axial images of the abdomen and pelvis were performed after the administration of 75 cc of Isovue 370 IV contrast. Oral contrast: No. Findings: The common bile duct is dilated to 1.5 cm pelvis no stones seen. There has been prior cholecystectomy. The appendix is not seen. There is a small fat-containing umbilical hernia. There is a small hiatal hernia. There is hardware in the left femur. Liver: Unremarkable Spleen: Unremarkable Pancreas: Unremarkable Adrenal Glands: Unremarkable Kidneys: Cyst in the upper pole of the right kidney There is no mass or lymphadenopathy. There is no free air. There is no free fluid. The urinary bladder appears normal. Impression: 1. Dilated common bile duct seen previously likely chronic. 2. No acute findings. End Impression PQRS Compliance Statement: One or more of the following individualized dose reduction techniques were utilized for this examination: 1. Automated exposure control 2. Adjustment of the mA and/or kV according to patient size 3. Use of iterative reconstruction technique Electronically signed by: Regis Wesley III, MD (11/03/2021 7:35 PM) [facility] Course & Med Decision Making: Course & Med Decision Making Pertinent Labs and Imaging studies reviewed. (See chart for details) 71-year-old female, vital signs reviewed, presents emergency department concerning constipation problems. Physical examination unremarkable, will CT abdomen pelvis with IV contrast, urinalysis assay, lipase, CBC, CMP. CT nonconcerning for colonic burden, all serum labs unremarkable, the patient's urine is not infected. Discussed findings with patient, discussed with patient using MiraLAX to help loosen stool, adding fiber to diet, will give Toradol for abdominal discomfort. Strict follow-up with primary care for ongoing constipation problems, patient gave verbal understanding of and is amenable to ED discharge planning. Discussed with the patient all findings and diagnostic testing as well as the need to follow-up with their primary care provider for further evaluation and treatment or return to the ED if any new or worsening symptoms. Strict return precautions were also discussed at length, the patient voiced understanding and agreement with the discharge planning. The patient was nontoxic in appearance, in no apparent distress, and hemodynamically stable at the time of disposition. Dragon Disclaimer: Dragon Disclaimer: This electronic medical record was generated, in whole or in part, using a voice recognition dictation system. Departure Departure Impression: Primary Impression: Constipation Qualified Codes: K59.00 - Constipation, unspecified Disposition: HOME / SELF CARE / HOMELESS Condition: GOOD Referrals: ELIESER HICKMAN MD (PCP) Patient Instructions: Constipation, Adult Additional Instructions: You were seen today in the emergency department for constipation problems. The CT of your abdomen and pelvis did not show any concerning findings, your lab work and urinalysis did not show any concerning findings. There is stool in your colon, your given a dose of MiraLAX today in the emergency department along with an intramuscular injection of Toradol for mild pain and discomfort. As we discussed, please try [id number] MiraLAX to control stools, increase your fluid intake at home, please see Dr. Hickman this coming week for ongoing constipation problems. Return to the emergency department for worsening symptoms or other concerns. Thank you for visiting our Emergency Department. It was a pleasure taking care of you today in the emergency department and we appreciate you trusting us with your care. If any additional problems come up don't hesitate to return to visit us. Please follow up with your primary care provider so they can plan additional care if needed and know about the problem that you had. If symptoms worsen come back to the Emergency Department. Any concerning symptoms that start such as chest pain, shortness of air, weakness or numbness on one side of the body, running high fevers or any other concerning symptoms return to the ER. EMERGENCY DEPARTMENT GENERAL DISCHARGE INSTRUCTIONS Thank you for coming to [facility] Emergency Department (ED) today and trusting us with you care. We trust that you had a positive experience in our Emergency Department. If you wish to speak to the department management, you may call the Director at [phone]. YOUR FOLLOW UP INSTRUCTIONS ARE FOLLOWS: 1. Do you have a private Doctor? If you do not have a private doctor, please ask for a resource list of physicians or clinics that may be able to assist you with fol low up care. 2. The Emergency Physicain has interpreted your x-rays. The X-Ray specialist will also review them. If there is a change in the findings, you will be notified in 48 hours when at all possible. 3. A lab test or culture has been done, your results will be reviewed and you will be notified if you need a change in treatment. ADDITIONAL INSTRUCTIONS AND INFORMATION: 1. Your care today has been supervised by a physician who is specially trained in emergency care. Many problems require more than one evaluation for a complete diagnosis and treatment. We recommend that you schedule your follow up appointment as recommended to ensure complete treatment of you illness or injury. If you are unable to obtain follow up care and continue to have a problem, or if your condition worsens, we recommend that you return to the ED. 2. We are not able to safely determine your condition over the phone nor are we able to give sound medical advice over the phone. For these safety reasons, if you call for medical advice we will ask you to come to the ED for further evaluation. 3. If you have any questions regarding these discharge instructions please call the ED at [phone]. SAFETY INFORMATION: In the interest of safety, wellness, and injury prevention; we encourage you to wear your sealbelt, if you smoke; quite smoking, and we encourage family to use a p rotective helmet for bicycling and other sporting events that present an increased risk for head injury. IF YOUR SYMPTOMS WORSEN OR NEW SYMPTOMS DEVELOP, OR YOU HAVE CONCERNS ABOUT YOUR CONDITION; OR IF YOUR CONDITION WORSENS WHILE YOU ARE WAITING FOR YOUR FOLLOW UP APPOINTMENT; EITHER CONTACT YOUR PRIMARY CARE DOCTOR, THE PHYSICIAN WHOSE NAME AND NUMBER YOU WERE GIVEN, OR RETURN TO THE ED IMMEDIATELY. MIREYA HELTON APRN Nov 03, 2021 20:24
[2021-11-03 20:43] LABS: BILIRUBIN,URINE NEGATIVE (NEG); CLARITY,URINE CLEAR; COLOR,URINE YELLOW; NITRITE,URINE NEGATIVE (NEG); PH,URINE 8.5 (<5.0-8.0); PROTEIN,URINE 30 mg/dL (NEG-TRACE)
[2021-11-03 20:50] LABS: BACTERIA,URINE 0 /HPF (0-FEW); RBC,URINE 0 /HPF (0-2); WBC,URINE OCC /HPF (0-4)
[2021-11-03 21:30] VITALS: BP 105/52
[2021-11-03] MEDS ORDERED: KETOROLAC 30 MG/ML VIAL. IM ONE (21:30)
[2021-11-03] MEDS ORDERED: POLYETHYLENE GLYCOL 3350 17 GM PACKET. PO ONE (21:30)
== END 2021-11-03 21:44 | disposition home or self-care (01) ==
LOC: ER 16:31
DX: K59.00 Constipation, unspecified (principal); G89.29 Other chronic pain; E11.9 Type 2 diabetes mellitus without complications; Z88.1 Allergy status to other antibiotic agents; Z88.5 Allergy status to narcotic agent
CPT/HCPCS: 36415; 74177; 80053; 81001; 83690; 85025; 96372; 99285; J1885; Q9967

== ENCOUNTER → 2022-01-17 | Outpatient (CLI) | payer MEDICARE ==
--- NOTE | 2022-01-17 18:06 | KCIC ---
US ABDOMEN COMPLETE History: Dilated common bile duct. Comparison: CT abdomen pelvis 01/04/2021 Technique: Sonographic examination of the abdomen. Findings: Pancreas: Visualized portions are unremarkable. Liver: The liver measures 11.5 cm. Liver echotexture is normal. No focal hepatic lesions. Hepatopet al flow in the portal vein. Gallbladder: Surgically absent. Bile ducts: The common duct measures 7 mm. Right kidney: 11.2 cm length. Right upper pole renal cyst measuring 3.3 cm. No calculi or hydronephro sis. Left kidney: 12.6 cm length. No focal lesion, calculi or hydronephrosis. Spleen: 11.1 cm length. Punctate calcification consistent with granuloma. No masses. Aorta/IVC: Visualized portions are unremarkable. Other: No ascites. Impression: 1. Prominent common bile duct measuring 7 mm diameter proximally. This can be seen with aging and in the setting of prior cholecystectomy. Correlate for exam and laboratory evidence of cholestasis. Electronically signed by: Peter Dias MD (01/17/2022 6:03 PM) [id number]
== END ==
LOC: KCIC US 12:49
PROVIDERS: ATTEND Internal Medicine Gastroenterology
DX: K83.8 Other specified diseases of biliary tract (principal); R10.13 Epigastric pain
CPT/HCPCS: 76700

== ENCOUNTER → 2022-01-25 | Outpatient (CLI) | payer MEDICARE ==
--- NOTE | 2022-01-25 16:53 | KCIC ---
MRI ABDOMEN W/O CONTRAST: MRCP Clinical Indication: Reason: ABNORMAL ULS / Spl. Instructions: / History: PROMINENT COMMON BILE DUCT ON ULS. ABDOMEN PAIN, WEIGHTLOSS Comparison: Complete abdominal ultrasound January 17, 2022. Technique: Multiplanar multiple pulse sequence imaging of the abdomen was performed, including T2 thi n slab images through the biliary tree, without contrast. 3-D volume rendering images constructed to better evaluate the biliary tree anatomy. Findings: Diffusion-weighted sequence is unremarkable. There is no fatty infiltration of the liver. Cholecystectomy. There is mild central intrahepatic duct prominence. The extrahepatic duct is dilated measuring up to 1.2 cm. The distal most common bile duct is not imaged on the T2 coronal thin slab i mages. On the images available a filling defect in the common bile duct is not seen. No filling defec t is seen on the other available T2 sequences. The pancreatic duct in the pancreas head is upper limits of normal in caliber. The pancreatic duct is otherwise normal caliber. Spleen size normal. Pancreas homogeneous. Adrenal glands normal. No hydronephrosis. There is a right upper pole renal cyst that does not require follow-up. There is a small hiatal hernia. No evidence of bowel obstruction. IMPRESSION: Common bile duct is dilated. No choledocholithiasis is identified. Electronically signed by: Cash Singleton MD (01/25/2022 4:50 PM) [id number]
== END ==
LOC: KCIC 12:34
PROVIDERS: ATTEND Internal Medicine Gastroenterology
DX: K83.8 Other specified diseases of biliary tract (principal); K44.9 Diaphragmatic hernia without obstruction or gangrene; N28.1 Cyst of kidney, acquired; Z90.49 Acquired absence of other specified parts of digestive tract
CPT/HCPCS: 74181